=== PATIENT | male | born 1995 | race Caucasian/White ===

== ENCOUNTER 2021-10-10 16:38 | Inpatient (IN) | payer BC ==
[~2021-10-10] VITALS: Ht 160 cm; Wt 54.5 kg
[2021-10-10 18:12] LABS: BASOPHILS % 1.1 % (0.0-2.0); EOSINOPHILS % 1.6 % (0.0-5.0); LYMPHOCYTES % 15.5 % (20.0-50.0); MEAN CORPUSCULAR HEMOGLOBIN 31.1 pg (28.0-32.0); MEAN CORPUSCULAR VOLUME 92.8 fL (80.0-94.0); MEAN PLATELET VOLUME 7.9 fl (7.4-10.4); MONOCYTES % 7.9 % (2.0-8.0); NEUTROPHILS % 73.9 % (40.0-76.0); PLATELET 249 x1000/uL (130-400); RED BLOOD CELL COUNT 1.47 mill/uL (4.7-6.1); RED CELL DISTRIBUTION WIDTH 13.6 % (11.6-14.6)
[2021-10-10 18:15] LABS: CHLORIDE 107 mEq/L (98-107); HEMOGLOBIN. 4.6 g/dL (14.0-18.0)
[2021-10-10 18:16] LABS: HEMATOCRIT. 13.7 % (42.0-52.0)
[2021-10-10 18:17] LABS: INR 1.2; PROTHROMBIN TIME 12.3 sec (9.6-11.0)
[2021-10-10 18:19] LABS: ETHANOL BLOOD < 10 mg/dL
[2021-10-10] MEDS ORDERED: FUROSEMIDE 100MG/10ML VIAL IV STA (19:51)
[2021-10-10] MEDS ORDERED: SODIUM BICARBONATE 8.4% 1 MEQ/ML 50ML SYR IV ONE (20:00)
[2021-10-10] MEDS ORDERED: DEXTROSE 50% WATER 50ML SYRINGE IV ONE (20:00)
[2021-10-10] MEDS ORDERED: CALCIUM GLUCONATE 1GM PREMIX 50 ML IV ONE (20:00)
[2021-10-10] MEDS ORDERED: ALBUTEROL (0.083%) 2.5MG/3ML NEB HHN ONE (20:00)
[2021-10-10] MEDS ORDERED: INSULIN REGULAR (HUMULIN R) 300UNITS/3ML VIAL IV ONE (20:00)
[2021-10-10] MEDS ORDERED: SODIUM POLYSTYRENE SULFONATE 15 G/60 ML BOT PO ONE (20:00)
[2021-10-11] VITALS (7 sets, daily range): BP systolic 130–165; BP diastolic 64–90
[2021-10-11 02:32] LABS: BASOPHILS % 0.5 % (0.0-2.0); EOSINOPHILS % 0.5 % (0.0-5.0); LYMPHOCYTES % 9.4 % (20.0-50.0); MEAN CORPUSCULAR HEMOGLOBIN 29.3 pg (28.0-32.0); MEAN CORPUSCULAR VOLUME 87.6 fL (80.0-94.0); MONOCYTES % 7.5 % (2.0-8.0); NEUTROPHILS % 82.1 % (40.0-76.0); PLATELET 208 x1000/uL (130-400); RED BLOOD CELL COUNT 2.35 mill/uL (4.7-6.1); RED CELL DISTRIBUTION WIDTH 16.7 % (11.6-14.6)
[2021-10-11 03:14] LABS: HEMATOCRIT. 20.6 % (42.0-52.0)
[2021-10-11 03:15] LABS: HEMOGLOBIN. 6.9 g/dL (14.0-18.0)
[2021-10-11] MEDS ORDERED: LIDOCAINE HCL 1% 20ML VIAL (Pyxis) INJ ONE (08:17)
[2021-10-11] MEDS ORDERED: ONDANSETRON HCL 4MG/2ML INJ IV PRN (10:15)
[2021-10-11 17:19] LABS: HEPATITIS B SURFACE ANTIGEN NEGATIVE
[2021-10-11 17:20] LABS: HEPATITIS B SURFACE ANTIGEN NEGATIVE
[2021-10-12] VITALS: BP 158/88
[2021-10-12 00:15] LABS: HEMATOCRIT 24.9 % (42.0-52.0); HEMOGLOBIN 8.5 g/dL (14.0-18.0)
[2021-10-12 00:23] LABS: PHOSPHORUS 4.5 mg/dL (2.5-4.9)
[2021-10-12 03:58] VITALS: BP 137/77
[2021-10-12 05:48] LABS: BASOPHILS % 0.8 % (0.0-2.0); EOSINOPHILS % 1.5 % (0.0-5.0); HEMATOCRIT. 24.7 % (42.0-52.0); HEMOGLOBIN. 8.6 g/dL (14.0-18.0); LYMPHOCYTES % 18.7 % (20.0-50.0); MEAN CORPUSCULAR HEMOGLOBIN 28.6 pg (28.0-32.0); MEAN CORPUSCULAR VOLUME 82.3 fL (80.0-94.0); PLATELET 180 x1000/uL (130-400); RED CELL DISTRIBUTION WIDTH 19.3 % (11.6-14.6)
[2021-10-12 08:00] VITALS: BP 130/84
[2021-10-12] MEDS: ACETAMINOPHEN 325MG TABLET PO PRN (08:23)
[2021-10-12] MEDS: AMLODIPINE 10MG TABLET PO SCH (08:24)
[2021-10-12] MEDS ORDERED: ONDANSETRON HCL 4MG/2ML INJ IV PRN (10:00)
[2021-10-12 12:00] VITALS: BP 123/68
[2021-10-12 16:00] VITALS: BP 123/81
[2021-10-12] MEDS: CALCIUM 1250MG TABLET (500MG ELEMENTAL CALCIUM) PO SCH (16:54)
[2021-10-12 20:00] VITALS: BP 128/89
[2021-10-12] MEDS ORDERED: EPOETIN ALFA-EPBX 4,000 UNIT/ML VIAL SUBCUT SCH (21:00)
[2021-10-13] VITALS: BP 131/94
[2021-10-13 04:00] VITALS: BP 124/85
[2021-10-13 08:00] VITALS: BP 138/84
[2021-10-13] MEDS: AMLODIPINE 10MG TABLET PO SCH ×2 (08:07→15:34)
[2021-10-13] MEDS: CALCIUM 1250MG TABLET (500MG ELEMENTAL CALCIUM) PO SCH ×3 (08:08→16:39)
[2021-10-13 08:10] LABS: BASOPHILS % 0.9 % (0.0-2.0); EOSINOPHILS % 2.2 % (0.0-5.0); HEMATOCRIT. 27.4 % (42.0-52.0); HEMOGLOBIN. 9.4 g/dL (14.0-18.0); LYMPHOCYTES % 13.7 % (20.0-50.0); MEAN CORPUSCULAR HEMOGLOBIN 28.3 pg (28.0-32.0); MEAN CORPUSCULAR VOLUME 82.5 fL (80.0-94.0); MEAN PLATELET VOLUME 8.1 fl (7.4-10.4); MONOCYTES % 9.3 % (2.0-8.0); NEUTROPHILS % 73.9 % (40.0-76.0); PLATELET 210 x1000/uL (130-400); RED BLOOD CELL COUNT 3.33 mill/uL (4.7-6.1); RED CELL DISTRIBUTION WIDTH 18.8 % (11.6-14.6)
[2021-10-13 12:00] VITALS: BP 134/93
[2021-10-13 16:00] VITALS: BP 150/107
[2021-10-13] MEDS: FERROUS SULFATE 325MG TABLET PO SCH (16:40)
[2021-10-13 20:00] VITALS: BP 126/87
[2021-10-14] VITALS (17 sets, daily range): BP systolic 99–147; BP diastolic 8–96
[2021-10-14 06:40] LABS: EOSINOPHILS % 2.2 % (0.0-5.0); HEMATOCRIT. 28.6 % (42.0-52.0); HEMOGLOBIN. 9.8 g/dL (14.0-18.0); LYMPHOCYTES % 16.9 % (20.0-50.0); MEAN CORPUSCULAR HEMOGLOBIN 28.4 pg (28.0-32.0); MEAN CORPUSCULAR VOLUME 82.7 fL (80.0-94.0); MEAN PLATELET VOLUME 7.8 fl (7.4-10.4); MONOCYTES % 11.2 % (2.0-8.0); NEUTROPHILS % 68.7 % (40.0-76.0); PLATELET 238 x1000/uL (130-400); RED BLOOD CELL COUNT 3.46 mill/uL (4.7-6.1); RED CELL DISTRIBUTION WIDTH 18.5 % (11.6-14.6)
[2021-10-14 07:13] LABS: INR 1.2; PROTHROMBIN TIME 12.3 sec (9.6-11.0)
[2021-10-14] MEDS ORDERED: CEFAZOLIN 1000MG PREMIX 50 ML IV ONE ×2 (07:30→07:42)
[2021-10-14] MEDS ORDERED: FENTANYL CITRATE/PF 50MCG/ML 2ML VIAL ONE (07:42)
[2021-10-14] MEDS ORDERED: HEPARIN 1000 UNITS/ML 10ML ONE (07:43)
[2021-10-14] MEDS ORDERED: LIDOCAINE HCL 1% 20ML VIAL (Pyxis) INJ ONE (07:43)
[2021-10-14] MEDS ORDERED: FENTANYL CITRATE/PF 50MCG/ML 2ML VIAL IV ONE (08:30)
[2021-10-14] MEDS: CALCIUM 1250MG TABLET (500MG ELEMENTAL CALCIUM) PO SCH ×3 (10:02→17:42)
[2021-10-14] MEDS: FERROUS SULFATE 325MG TABLET PO SCH ×2 (10:03→17:42)
[2021-10-14] MEDS: AMLODIPINE 10MG TABLET PO SCH (10:03)
[2021-10-14] MEDS: ACETAMINOPHEN 325MG TABLET PO PRN (13:00)
[2021-10-14 13:06] LABS: A/G RATIO 1.3 (0.7-1.7); ALBUMIN 3.2 g/dL (2.9-4.4); ALPHA-1-GLOBULIN 0.3 g/dL (0.0-0.4); BETA GLOBULIN 0.9 g/dL (0.7-1.3); GAMMA GLOBULINS 0.4 g/dL (0.4-1.8); GLOBULIN TOTAL 2.5 g/dL (2.2-3.9); M-SPIKE Not Observed g/dL (Not Observed); TOTAL PROTEIN SERUM 5.7 g/dL (6.0-8.5)
== END 2021-10-14 20:27 | disposition left against medical advice (07) | DRG 673 ==
LOC: ER 16:38 → MICUSO 18:18 → EDBEDREQ 18:24 → EDBEDREQTM 18:24 → 8WST 10-11 11:47
PROVIDERS: ADMIT Internal Medicine; ATTEND Internal Medicine
PROC: 30233N1 Transfusion of Nonautologous Red Blood Cells into Peripheral Vein, Percutaneous Approach (ICD-10-PCS; principal; 2021-10-10)
PROC: 5A1D70Z Performance of Urinary Filtration, Intermittent, Less than 6 Hours Per Day (ICD-10-PCS; 2021-10-11)
PROC: 02H633Z Insertion of Infusion Device into Right Atrium, Percutaneous Approach (ICD-10-PCS; 2021-10-11)
PROC: B548ZZA Ultrasonography of Superior Vena Cava, Guidance (ICD-10-PCS; 2021-10-11)
PROC: 5A1D70Z Performance of Urinary Filtration, Intermittent, Less than 6 Hours Per Day (ICD-10-PCS; 2021-10-13)
PROC: 0JH63XZ Insertion of Tunneled Vascular Access Device into Chest Subcutaneous Tissue and Fascia, Percutaneous Approach (ICD-10-PCS; 2021-10-14)
PROC: 02PAX3Z Removal of Infusion Device from Heart, External Approach (ICD-10-PCS; 2021-10-14)
PROC: 02HV33Z Insertion of Infusion Device into Superior Vena Cava, Percutaneous Approach (ICD-10-PCS; 2021-10-14)
PROC: B518ZZA Fluoroscopy of Superior Vena Cava, Guidance (ICD-10-PCS; 2021-10-14)
DX: I13.11 Hypertensive heart and chronic kidney disease without heart failure, with stage 5 chronic kidney disease, or end stage renal disease (principal); N18.6 End stage renal disease; N17.9 Acute kidney failure, unspecified; E87.2 Acidosis; E44.0 Moderate protein-calorie malnutrition; Z20.822 Contact with and (suspected) exposure to COVID-19; Z53.29 Procedure and treatment not carried out because of patient's decision for other reasons; D64.9 Anemia, unspecified; E87.5 Hyperkalemia; E83.51 Hypocalcemia; Z99.2 Dependence on renal dialysis; Z68.21 Body mass index [BMI] 21.0-21.9, adult
CPT/HCPCS: 36415; 36556; 36558; 36589; 71045; 76770; 76937; 77001; 80048; 80053; 80320; 82550; 82728; 83036; 83540; 83550; 83605; 83880; 84100; 84155; 84165; 84484; 85014; 85018; 85025; 86705; 86706; 86709; 86803; 86850; 86900; 86920; 87340; 87426; 93005; 94644; 99152; 99153; 99291; C1750; C1752; C1769; J0610; J0690; J0885; J1644; J1815; J1940; J3010; J3490; P9016; G0480; G0500

== ENCOUNTER 2021-10-15 12:33 | Emergency (ER) | payer BC ==
[~2021-10-15] VITALS: Ht 160 cm; Wt 50.0 kg
[2021-10-15 16:03] LABS: BASOPHILS % 0.9 % (0.0-2.0); EOSINOPHILS % 1.6 % (0.0-5.0); HEMATOCRIT. 28.6 % (42.0-52.0); HEMOGLOBIN. 9.3 g/dL (14.0-18.0); LYMPHOCYTES % 11.8 % (20.0-50.0); MEAN CORPUSCULAR HEMOGLOBIN 27.4 pg (28.0-32.0); MEAN CORPUSCULAR VOLUME 83.8 fL (80.0-94.0); MEAN PLATELET VOLUME 7.4 fl (7.4-10.4); MONOCYTES % 9.4 % (2.0-8.0); NEUTROPHILS % 76.3 % (40.0-76.0); PLATELET 269 x1000/uL (130-400); RED BLOOD CELL COUNT 3.41 mill/uL (4.7-6.1); RED CELL DISTRIBUTION WIDTH 18.9 % (11.6-14.6)
[2021-10-15 16:10] LABS: CHLORIDE 103 mEq/L (98-107)
[2021-10-15 21:13] LABS: CLARITY URINE CLEAR (CLEAR); COLOR URINE YELLOW (YELLOW); PH URINE 7.5 (4.5-8.0); SPECIFIC GRAVITY URINE 1.013 (1.005-1.030)
[2021-10-15 21:14] LABS: KETONES URINE NEGATIVE (NEGATIVE); PROTEIN URINE 4+ (NEGATIVE)
[2021-10-15 21:15] LABS: LEUKOCYTE ESTERASE URINE TRACE (NEGATIVE); NITRITE URINE NEGATIVE (NEGATIVE); OCCULT BLOOD URINE 2+ (NEGATIVE); UROBILINOGEN URINE 0.2 E.U./dL (0.2-1.0)
[2021-10-15 22:10] VITALS: BP 112/73
== END 2021-10-15 22:10 | disposition left against medical advice (07) ==
LOC: ER 12:33 → CANBEDREQ 10-16 01:08 → SUPCPDRO 10-16 15:30
DX: N19 Unspecified kidney failure (principal); I49.9 Cardiac arrhythmia, unspecified; Z20.822 Contact with and (suspected) exposure to COVID-19
CPT/HCPCS: 36415; 71045; 80053; 81003; 83880; 84484; 85025; 87426; 93005; 99285

== ENCOUNTER 2021-10-20 21:45 | Inpatient (IN) | payer BC ==
[~2021-10-20] VITALS: Ht 154.9 cm; Wt 59.9 kg
[2021-10-20 23:15] LABS: EOSINOPHILS % 1.7 % (0.0-5.0); HEMATOCRIT. 24.5 % (42.0-52.0); HEMOGLOBIN. 8.1 g/dL (14.0-18.0); LYMPHOCYTES % 17.2 % (20.0-50.0); MEAN CORPUSCULAR VOLUME 84.3 fL (80.0-94.0); MEAN PLATELET VOLUME 6.9 fl (7.4-10.4); MONOCYTES % 8.6 % (2.0-8.0); NEUTROPHILS % 71.5 % (40.0-76.0); PLATELET 306 x1000/uL (130-400); RED CELL DISTRIBUTION WIDTH 18.9 % (11.6-14.6)
[2021-10-20 23:19] LABS: CHLORIDE 106 mEq/L (98-107)
[2021-10-20 23:37] LABS: INR 1.1; PROTHROMBIN TIME 11.9 sec (9.6-11.0)
[2021-10-20] MEDS ORDERED: FUROSEMIDE 100MG/10ML VIAL IV NR (23:49)
[2021-10-21] MEDS ORDERED: ALBUTEROL (0.083%) 2.5MG/3ML NEB HHN NR
[2021-10-21] MEDS ORDERED: DEXTROSE 50% WATER 50ML SYRINGE IV NR
[2021-10-21] MEDS ORDERED: INSULIN REGULAR (HUMULIN R) 300UNITS/3ML VIAL IV NR
[2021-10-21] MEDS ORDERED: CALCIUM CHLORIDE 1GM/10ML SYR IV NR
[2021-10-21] MEDS ORDERED: SODIUM BICARBONATE 8.4% 1 MEQ/ML 50ML SYR IV NR
[2021-10-21] MEDS ORDERED: ONDANSETRON HCL 4MG/2ML INJ IV PRN (09:15)
[2021-10-21 09:39] LABS: CLARITY URINE CLEAR (CLEAR); COLOR URINE YELLOW (YELLOW); KETONES URINE NEGATIVE (NEGATIVE); LEUKOCYTE ESTERASE URINE NEGATIVE (NEGATIVE); NITRITE URINE NEGATIVE (NEGATIVE); OCCULT BLOOD URINE 1+ (NEGATIVE); PROTEIN URINE 3+ (NEGATIVE); SPECIFIC GRAVITY URINE 1.011 (1.005-1.030); UROBILINOGEN URINE 0.2 E.U./dL (0.2-1.0)
[2021-10-21] MEDS ORDERED: CALCIUM CHLORIDE 1,000 MG in DEXT 5% WATER 90 ML IV NR (10:00)
[2021-10-21 12:04] LABS: HEPATITIS B SURFACE ANTIGEN NEGATIVE
[2021-10-21] MEDS: IPRATROPIUM BROMIDE (0.02%) 0.5MG/2.5ML NEB HHN SCH (18:20)
[2021-10-21] MEDS: PIPERACILLIN/TAZOBACTAM 3.375 G in DEXTROSE 5% WATER 50 ML IV SCH (20:00)
[2021-10-22] MEDS: ACETAMINOPHEN 325MG TABLET PO PRN ×2 (00:32→22:42)
[2021-10-22] MEDS: IPRATROPIUM BROMIDE (0.02%) 0.5MG/2.5ML NEB HHN SCH ×5 (01:00→19:53)
[2021-10-22 04:54] VITALS: BP 133/95
[2021-10-22 08:00] VITALS: BP 133/90
[2021-10-22 08:14] LABS: BASOPHILS % 0.7 % (0.0-2.0); HEMATOCRIT. 23.6 % (42.0-52.0); LYMPHOCYTES % 10.4 % (20.0-50.0); MEAN CORPUSCULAR VOLUME 82.2 fL (80.0-94.0); MEAN PLATELET VOLUME 6.4 fl (7.4-10.4); MONOCYTES % 11.6 % (2.0-8.0); NEUTROPHILS % 76.3 % (40.0-76.0); PLATELET 298 x1000/uL (130-400); RED BLOOD CELL COUNT 2.87 mill/uL (4.7-6.1); RED CELL DISTRIBUTION WIDTH 19.2 % (11.6-14.6)
[2021-10-22] MEDS: PIPERACILLIN/TAZOBACTAM 3.375 G in DEXTROSE 5% WATER 50 ML IV SCH ×2 (08:51→22:40)
[2021-10-22 12:00] VITALS: BP 135/88
[2021-10-22 16:00] VITALS: BP 145/88
[2021-10-22] MEDS ORDERED: OXYMETAZOLINE HCL NASAL SPRAY 15ML BOTHNSTRLS PRN (16:00)
[2021-10-22 20:00] VITALS: BP 151/106
[2021-10-23] MEDS: IPRATROPIUM BROMIDE (0.02%) 0.5MG/2.5ML NEB HHN SCH ×5 (00:21→17:10)
[2021-10-23 04:00] VITALS: BP 132/78
[2021-10-23 07:25] LABS: HEMATOCRIT. 22.1 % (42.0-52.0); HEMOGLOBIN. 7.7 g/dL (14.0-18.0); MEAN CORPUSCULAR HEMOGLOBIN 28.5 pg (28.0-32.0); MEAN CORPUSCULAR VOLUME 81.9 fL (80.0-94.0); MEAN PLATELET VOLUME 7.2 fl (7.4-10.4); PLATELET 268 x1000/uL (130-400); RED CELL DISTRIBUTION WIDTH 18.8 % (11.6-14.6)
[2021-10-23 08:00] VITALS: BP 143/90
[2021-10-23] MEDS: METOPROLOL TARTRATE 50MG TABLET PO SCH ×2 (10:26→22:29)
[2021-10-23] MEDS: PIPERACILLIN/TAZOBACTAM 3.375 G in DEXTROSE 5% WATER 50 ML IV SCH ×2 (10:27→22:29)
[2021-10-23] MEDS ORDERED: VANCOMYCIN 1G PREMIX 200 ML IV SCH (11:00)
[2021-10-23 12:00] VITALS: BP 138/89
[2021-10-23] MEDS: FOLIC ACID/VITAMIN B COMP W-C TABLET PO SCH (14:04)
[2021-10-23] MEDS: CALCIUM ACETATE 667MG CAPSULE PO SCH ×2 (14:04→18:27)
[2021-10-23] MEDS: ACETAMINOPHEN 325MG TABLET PO PRN ×2 (15:43→22:28)
[2021-10-23 16:00] VITALS: BP 136/85
[2021-10-23 17:34] LABS: PLATELET ESTIMATE NORMAL
[2021-10-23] MEDS ORDERED: IOHEXOL-300 100 ML BOTTLE ONE (19:29)
[2021-10-23] MEDS ORDERED: IOHEXOL-350 100 ML BOTTLE ONE (19:30)
[2021-10-23 20:00] VITALS: BP 145/88
[2021-10-24] VITALS (53 sets, daily range): BP systolic 94–176; BP diastolic 47–124
[2021-10-24 02:33] LABS: BG BASE EXCESS -5.5 mmol/L (-2.0-2.0); BG CARBOXYHEMOGLOBIN 0.1 % (0.5-1.5); BG DEOXYHEMOGLOBIN 29.7 % (0.0-5.0); BG FRACTION INSPIRED OXYGEN 100; BG HCO3 ACT 20.2 mmol/L (22.0-26.0); BG OXYGEN SATURATION 70.3 % (92.0-98.5); BG OXYHEMOGLOBIN 70.2 % (94.0-97.0); BG PCO2 40.2 mmHg (35.0-45.0); BG PH 7.319 (7.350-7.450); BG PO2 40.3 mmHg (75.0-100.0); BG SAMPLE SITE LEFT RADIAL; BG VENT MODE MASK - NRB
[2021-10-24 06:35] LABS: HEMATOCRIT. 26.8 % (42.0-52.0); HEMOGLOBIN. 9.4 g/dL (14.0-18.0); MEAN CORPUSCULAR HEMOGLOBIN 29.3 pg (28.0-32.0); MEAN CORPUSCULAR VOLUME 83.5 fL (80.0-94.0); MEAN PLATELET VOLUME 7.4 fl (7.4-10.4); PLATELET 336 x1000/uL (130-400); RED BLOOD CELL COUNT 3.21 mill/uL (4.7-6.1); RED CELL DISTRIBUTION WIDTH 19.4 % (11.6-14.6)
[2021-10-24] MEDS: CALCIUM ACETATE 667MG CAPSULE PO SCH ×3 (07:15→17:00)
[2021-10-24] MEDS ORDERED: CALCIUM CHLORIDE 1,000 MG in DEXT 5% WATER 90 ML IV SCH (08:00)
[2021-10-24] MEDS ORDERED: INSULIN REGULAR (HUMULIN R) UD 100 UNITS/ML SYR IV SCH (08:00)
[2021-10-24] MEDS ORDERED: SODIUM BICARBONATE 8.4% 1 MEQ/ML 50ML SYR IV SCH (08:00)
[2021-10-24] MEDS ORDERED: DEXTROSE 50% WATER 50ML SYRINGE IV SCH (08:00)
[2021-10-24] MEDS ORDERED: INSULIN REGULAR (HUMULIN R) 300UNITS/3ML VIAL IV NR (08:03)
[2021-10-24] MEDS ORDERED: DEXTROSE 50% WATER 50ML SYRINGE IV NR (08:04)
[2021-10-24] MEDS ORDERED: SODIUM BICARBONATE 8.4% 1 MEQ/ML 50ML SYR IV NR (08:04)
[2021-10-24] MEDS ORDERED: SODIUM POLYSTYRENE SULFONATE 15 G/60 ML BOT PO NR (08:04)
[2021-10-24] MEDS ORDERED: NICARDIPINE 50 MG in SODIUM CHLORIDE 0.9% 230 ML IV PRN (08:30)
[2021-10-24] MEDS: IPRATROPIUM BROMIDE (0.02%) 0.5MG/2.5ML NEB HHN SCH ×2 (08:49→21:29)
[2021-10-24] MEDS ORDERED: CALCIUM CHLORIDE 1,000 MG in DEXT 5% WATER 90 ML IV NR (09:00)
[2021-10-24] MEDS: FOLIC ACID/VITAMIN B COMP W-C TABLET PO SCH (09:00)
[2021-10-24] MEDS: METOPROLOL TARTRATE 50MG TABLET PO SCH ×2 (09:00→20:59)
[2021-10-24 10:30] LABS: BG BASE EXCESS -5.4 mmol/L (-2.0-2.0); BG CARBOXYHEMOGLOBIN 0.3 % (0.5-1.5); BG DEOXYHEMOGLOBIN 2.1 % (0.0-5.0); BG FRACTION INSPIRED OXYGEN 100; BG HCO3 ACT 20.2 mmol/L (22.0-26.0); BG METHEMOGLOBIN 0.1 % (0.0-1.5); BG OXYGEN SATURATION 97.9 % (92.0-98.5); BG OXYHEMOGLOBIN 97.5 % (94.0-97.0); BG PCO2 39.8 mmHg (35.0-45.0); BG PH 7.323 (7.350-7.450); BG PO2 135.2 mmHg (75.0-100.0); BG SAMPLE SITE RIGHT RADIAL; BG TOTAL HEMOGLOBIN 9.6 g/dL (12.0-18.0); BG TOTAL RESPIRATORY RATE 25 b/min; BG VENT MODE VENT - AC
[2021-10-24] MEDS: PROPOFOL 10MG/ML 100ML 100 ML IV PRN ×3 (11:26→22:31)
[2021-10-24] MEDS: FENTANYL CITRATE/PF 2,500 MCG in SODIUM CHLORIDE 0.9% 200 ML IV PRN ×2 (11:28→21:09)
[2021-10-24] MEDS: PIPERACILLIN/TAZOBACTAM 3.375 G in DEXTROSE 5% WATER 50 ML IV SCH ×2 (12:56→20:58)
[2021-10-24] MEDS ORDERED: PHENYLEPHRINE 100 MG in DEXT 5% WATER 240 ML IV PRN (13:00)
[2021-10-24] MEDS: MIDAZOLAM HCL 100 MG in SODIUM CHLORIDE 0.9% 80 ML IV PRN (13:00)
[2021-10-24 13:40] LABS: PLATELET ESTIMATE NORMAL
[2021-10-24] MEDS: METHYLPREDNISOLONE SOD SUCC 125 MG/2 ML VIAL IV SCH ×2 (14:14→21:00)
[2021-10-24] MEDS ORDERED: VECURONIUM BROMIDE 10 MG/VIAL IV ONE (14:37)
[2021-10-24] MEDS ORDERED: ETOMIDATE 2MG/ML 10ML VIAL IV ONE (14:37)
[2021-10-24] MEDS ORDERED: SODIUM CHLORIDE 0.9% 10ML VIAL ONE (14:37)
[2021-10-25] VITALS (68 sets, daily range): BP systolic 65–202; BP diastolic 43–154
[2021-10-25] MEDS: IPRATROPIUM BROMIDE (0.02%) 0.5MG/2.5ML NEB HHN SCH ×6 (01:04→21:19)
[2021-10-25 05:33] LABS: HEMATOCRIT. 25.7 % (42.0-52.0); HEMOGLOBIN. 8.9 g/dL (14.0-18.0); MEAN CORPUSCULAR HEMOGLOBIN 28.4 pg (28.0-32.0); MEAN CORPUSCULAR VOLUME 81.9 fL (80.0-94.0); MEAN PLATELET VOLUME 7.4 fl (7.4-10.4); PLATELET 340 x1000/uL (130-400); RED BLOOD CELL COUNT 3.14 mill/uL (4.7-6.1); RED CELL DISTRIBUTION WIDTH 19.2 % (11.6-14.6)
[2021-10-25] MEDS: METHYLPREDNISOLONE SOD SUCC 125 MG/2 ML VIAL IV SCH ×3 (05:51→22:55)
[2021-10-25] MEDS: PROPOFOL 10MG/ML 100ML 100 ML IV PRN ×2 (07:36→17:43)
[2021-10-25] MEDS: CALCIUM ACETATE 667MG CAPSULE PO SCH ×3 (07:36→17:39)
[2021-10-25 08:58] LABS: BG BASE EXCESS 3.2 mmol/L (-2.0-2.0); BG CARBOXYHEMOGLOBIN 0.3 % (0.5-1.5); BG DEOXYHEMOGLOBIN 0.6 % (0.0-5.0); BG HCO3 ACT 23.4 mmol/L (22.0-26.0); BG OXYGEN SATURATION 99.4 % (92.0-98.5); BG OXYHEMOGLOBIN 99.1 % (94.0-97.0); BG PH 7.644 (7.350-7.450); BG PO2 502.5 mmHg (75.0-100.0); BG SAMPLE SITE LEFT RADIAL; BG TOTAL HEMOGLOBIN 9.3 g/dL (12.0-18.0); BG VENT MODE VENT - P/C
[2021-10-25 09:00] LABS: PLATELET ESTIMATE NORMAL
[2021-10-25] MEDS: METOPROLOL TARTRATE 50MG TABLET PO SCH ×2 (09:00→21:00)
[2021-10-25] MEDS: FOLIC ACID/VITAMIN B COMP W-C TABLET PO SCH (09:40)
[2021-10-25] MEDS: PANTOPRAZOLE SODIUM 40 MG/VIAL IV SCH (09:40)
[2021-10-25] MEDS: PIPERACILLIN/TAZOBACTAM 3.375 G in DEXTROSE 5% WATER 50 ML IV SCH ×2 (09:40→22:55)
[2021-10-25] MEDS: FENTANYL CITRATE/PF 2,500 MCG in SODIUM CHLORIDE 0.9% 200 ML IV PRN (11:36)
[2021-10-26] VITALS (86 sets, daily range): BP systolic 85–197; BP diastolic 39–132
[2021-10-26] MEDS: IPRATROPIUM BROMIDE (0.02%) 0.5MG/2.5ML NEB HHN SCH ×5 (01:15→20:05)
[2021-10-26] MEDS: FENTANYL CITRATE/PF 2,500 MCG in SODIUM CHLORIDE 0.9% 200 ML IV PRN ×3 (01:31→21:00)
[2021-10-26] MEDS: PROPOFOL 10MG/ML 100ML 100 ML IV PRN ×3 (02:41→14:10)
[2021-10-26] MEDS: CALCIUM ACETATE 667MG CAPSULE PO SCH ×3 (06:10→17:32)
[2021-10-26] MEDS: METHYLPREDNISOLONE SOD SUCC 125 MG/2 ML VIAL IV SCH ×3 (06:10→22:51)
[2021-10-26 06:11] LABS: BASOPHILS % 0.2 % (0.0-2.0); HEMATOCRIT. 28.7 % (42.0-52.0); HEMOGLOBIN. 9.7 g/dL (14.0-18.0); LYMPHOCYTES % 7.7 % (20.0-50.0); MEAN CORPUSCULAR HEMOGLOBIN 27.8 pg (28.0-32.0); MEAN CORPUSCULAR VOLUME 82.4 fL (80.0-94.0); MEAN PLATELET VOLUME 8.1 fl (7.4-10.4); MONOCYTES % 2.8 % (2.0-8.0); NEUTROPHILS % 89.3 % (40.0-76.0); PLATELET 453 x1000/uL (130-400); RED BLOOD CELL COUNT 3.48 mill/uL (4.7-6.1); RED CELL DISTRIBUTION WIDTH 19.2 % (11.6-14.6)
[2021-10-26] MEDS: FOLIC ACID/VITAMIN B COMP W-C TABLET PO SCH (08:45)
[2021-10-26] MEDS: PIPERACILLIN/TAZOBACTAM 3.375 G in DEXTROSE 5% WATER 50 ML IV SCH (08:45)
[2021-10-26] MEDS: PANTOPRAZOLE SODIUM 40 MG/VIAL IV SCH (08:45)
[2021-10-26] MEDS: METOPROLOL TARTRATE 50MG TABLET PO SCH ×2 (08:45→20:18)
[2021-10-26 11:14] LABS: BG BASE EXCESS -0.5 mmol/L (-2.0-2.0); BG CARBOXYHEMOGLOBIN 0.3 % (0.5-1.5); BG DEOXYHEMOGLOBIN 2.7 % (0.0-5.0); BG FRACTION INSPIRED OXYGEN 35; BG METHEMOGLOBIN 0.3 % (0.0-1.5); BG OXYGEN SATURATION 97.3 % (92.0-98.5); BG OXYHEMOGLOBIN 96.7 % (94.0-97.0); BG PCO2 38.8 mmHg (35.0-45.0); BG PH 7.409 (7.350-7.450); BG PO2 106.4 mmHg (75.0-100.0); BG SAMPLE SITE RIGHT RADIAL; BG TOTAL HEMOGLOBIN 10.1 g/dL (12.0-18.0); BG VENT MODE VENT - P/C
[2021-10-26 12:22] LABS: CHLORIDE 101 mEq/L (98-107)
[2021-10-26] MEDS ORDERED: DOPAMINE 400MG/250ML PREMIX 250 ML IV PRN (14:00)
[2021-10-26] MEDS: MIDAZOLAM HCL 100 MG in SODIUM CHLORIDE 0.9% 80 ML IV PRN (14:54)
[2021-10-27] VITALS (76 sets, daily range): BP systolic 95–176; BP diastolic 44–141
[2021-10-27] MEDS: MIDAZOLAM HCL 100 MG in SODIUM CHLORIDE 0.9% 80 ML IV PRN ×3 (03:29→22:51)
[2021-10-27] MEDS: IPRATROPIUM BROMIDE (0.02%) 0.5MG/2.5ML NEB HHN SCH ×6 (04:13→21:00)
[2021-10-27 04:45] LABS: HEMATOCRIT. 24.7 % (42.0-52.0); HEMOGLOBIN. 8.4 g/dL (14.0-18.0); MEAN CORPUSCULAR HEMOGLOBIN 28.3 pg (28.0-32.0); MEAN CORPUSCULAR VOLUME 83.5 fL (80.0-94.0); MEAN PLATELET VOLUME 7.7 fl (7.4-10.4); PLATELET 357 x1000/uL (130-400); RED BLOOD CELL COUNT 2.95 mill/uL (4.7-6.1)
[2021-10-27] MEDS: FENTANYL CITRATE/PF 2,500 MCG in SODIUM CHLORIDE 0.9% 200 ML IV PRN ×3 (05:15→20:45)
[2021-10-27] MEDS: CALCIUM ACETATE 667MG CAPSULE PO SCH ×3 (06:18→19:06)
[2021-10-27] MEDS: METHYLPREDNISOLONE SOD SUCC 125 MG/2 ML VIAL IV SCH ×3 (06:19→21:22)
[2021-10-27] MEDS ORDERED: SODIUM POLYSTYRENE SULFONATE 15 G/60 ML BOT NG NR (09:00)
[2021-10-27] MEDS: METOPROLOL TARTRATE 50MG TABLET PO SCH ×2 (09:00→21:22)
[2021-10-27] MEDS: PANTOPRAZOLE SODIUM 40 MG/VIAL IV SCH (09:38)
[2021-10-27] MEDS: FOLIC ACID/VITAMIN B COMP W-C TABLET PO SCH (09:38)
[2021-10-27] MEDS ORDERED: CALCIUM GLUCONATE 1GM PREMIX 50 ML IV SCH (10:00)
[2021-10-27 10:11] LABS: BG BASE EXCESS -3.3 mmol/L (-2.0-2.0); BG CARBOXYHEMOGLOBIN 0.3 % (0.5-1.5); BG FRACTION INSPIRED OXYGEN 35; BG HCO3 ACT 22.5 mmol/L (22.0-26.0); BG METHEMOGLOBIN 0.1 % (0.0-1.5); BG OXYHEMOGLOBIN 94.6 % (94.0-97.0); BG PCO2 43.7 mmHg (35.0-45.0); BG PO2 86.6 mmHg (75.0-100.0); BG SAMPLE SITE RIGHT RADIAL; BG TOTAL HEMOGLOBIN 9.4 g/dL (12.0-18.0); BG VENT MODE VENT - P/C
[2021-10-27] MEDS ORDERED: SODIUM BICARBONATE 8.4% 1 MEQ/ML 50ML SYR IV ONE (11:00)
[2021-10-27 13:32] LABS: PLATELET ESTIMATE NORMAL
[2021-10-27] MEDS: LORAZEPAM 2MG/ML CPJ IV PRN (22:18)
[2021-10-28] VITALS (67 sets, daily range): BP systolic 102–172; BP diastolic 44–111
[2021-10-28] MEDS: IPRATROPIUM BROMIDE (0.02%) 0.5MG/2.5ML NEB HHN SCH ×5 (00:58→16:30)
[2021-10-28] MEDS: LORAZEPAM 2MG/ML CPJ IV PRN ×2 (02:25→08:52)
[2021-10-28] MEDS: FENTANYL CITRATE/PF 2,500 MCG in SODIUM CHLORIDE 0.9% 200 ML IV PRN ×2 (04:04→22:30)
[2021-10-28] MEDS: METHYLPREDNISOLONE SOD SUCC 125 MG/2 ML VIAL IV SCH ×3 (06:02→22:25)
[2021-10-28] MEDS: CALCIUM ACETATE 667MG CAPSULE PO SCH ×3 (06:02→17:00)
[2021-10-28 06:28] LABS: HEMATOCRIT. 21.8 % (42.0-52.0); HEMOGLOBIN. 7.1 g/dL (14.0-18.0); MEAN CORPUSCULAR HEMOGLOBIN 27.3 pg (28.0-32.0); MEAN CORPUSCULAR VOLUME 84.3 fL (80.0-94.0); MEAN PLATELET VOLUME 7.7 fl (7.4-10.4); PLATELET 348 x1000/uL (130-400); RED BLOOD CELL COUNT 2.59 mill/uL (4.7-6.1); RED CELL DISTRIBUTION WIDTH 19.1 % (11.6-14.6)
[2021-10-28 06:42] LABS: CHLORIDE 102 mEq/L (98-107)
[2021-10-28] MEDS: PANTOPRAZOLE SODIUM 40 MG/VIAL IV SCH (08:52)
[2021-10-28] MEDS: METOPROLOL TARTRATE 50MG TABLET PO SCH ×2 (08:52→22:26)
[2021-10-28] MEDS: FOLIC ACID/VITAMIN B COMP W-C TABLET PO SCH (08:52)
[2021-10-28 09:00] LABS: CHLORIDE 100 mEq/L (98-107)
[2021-10-28 09:14] LABS: BG BASE EXCESS -5.1 mmol/L (-2.0-2.0); BG CARBOXYHEMOGLOBIN 0.3 % (0.5-1.5); BG FRACTION INSPIRED OXYGEN 35; BG HCO3 ACT 20.6 mmol/L (22.0-26.0); BG METHEMOGLOBIN 0.3 % (0.0-1.5); BG OXYGEN SATURATION 87.9 % (92.0-98.5); BG OXYHEMOGLOBIN 87.4 % (94.0-97.0); BG PCO2 41.2 mmHg (35.0-45.0); BG PH 7.317 (7.350-7.450); BG PO2 63.7 mmHg (75.0-100.0); BG SAMPLE SITE RIGHT RADIAL; BG TOTAL HEMOGLOBIN 7.2 g/dL (12.0-18.0); BG TOTAL RESPIRATORY RATE 43 b/min; BG VENT MODE VENT - P/C
[2021-10-28] MEDS ORDERED: HALOPERIDOL LACTATE 5MG/ML VIAL IM NR (10:00)
[2021-10-28] MEDS ORDERED: FLUMAZENIL 0.1 MG/ML 5ML VIAL IV ONE (10:32)
[2021-10-28] MEDS ORDERED: NALOXONE HCL 0.4 MG/ML 1ML VIAL ONE (10:35)
[2021-10-28 11:52] LABS: PLATELET ESTIMATE NORMAL
[2021-10-28] MEDS ORDERED: CALCIUM GLUCONATE 100MG/ML 10ML VIAL IV ONE (12:00)
[2021-10-28] MEDS ORDERED: CALCIUM GLUCONATE 1GM PREMIX 50 ML IV SCH (14:00)
[2021-10-28] MEDS: NIFEDIPINE XL 30MG TAB PO SCH (17:00)
[2021-10-28] MEDS ORDERED: EPOETIN ALFA 10000UNITS/ML VIAL SUBCUT SCH (21:00)
[2021-10-28] MEDS: PROPOFOL 10MG/ML 100ML 100 ML IV PRN (22:28)
[2021-10-28 22:50] LABS: BG BASE EXCESS -7.5 mmol/L (-2.0-2.0); BG CARBOXYHEMOGLOBIN 0.2 % (0.5-1.5); BG DEOXYHEMOGLOBIN 18.7 % (0.0-5.0); BG FRACTION INSPIRED OXYGEN 100; BG HCO3 ACT 18.6 mmol/L (22.0-26.0); BG METHEMOGLOBIN 0.3 % (0.0-1.5); BG OXYGEN SATURATION 81.2 % (92.0-98.5); BG OXYHEMOGLOBIN 80.8 % (94.0-97.0); BG PCO2 40.2 mmHg (35.0-45.0); BG PH 7.283 (7.350-7.450); BG PO2 53.8 mmHg (75.0-100.0); BG SAMPLE SITE RIGHT RADIAL; BG TOTAL HEMOGLOBIN 8.3 g/dL (12.0-18.0); BG VENT MODE VENT - AC
[2021-10-29] VITALS (90 sets, daily range): BP systolic 85–158; BP diastolic 44–120
[2021-10-29] MEDS: IPRATROPIUM BROMIDE (0.02%) 0.5MG/2.5ML NEB HHN SCH ×6 (00:25→22:01)
[2021-10-29] MEDS: PROPOFOL 10MG/ML 100ML 100 ML IV PRN ×5 (01:27→20:47)
[2021-10-29 02:06] LABS: BG BASE EXCESS -6.2 mmol/L (-2.0-2.0); BG CARBOXYHEMOGLOBIN 0.3 % (0.5-1.5); BG DEOXYHEMOGLOBIN 16.9 % (0.0-5.0); BG FRACTION INSPIRED OXYGEN 100; BG HCO3 ACT 19.9 mmol/L (22.0-26.0); BG METHEMOGLOBIN 0.3 % (0.0-1.5); BG OXYHEMOGLOBIN 82.5 % (94.0-97.0); BG PCO2 42.1 mmHg (35.0-45.0); BG PH 7.292 (7.350-7.450); BG PO2 56.9 mmHg (75.0-100.0); BG SAMPLE SITE RIGHT RADIAL
[2021-10-29 02:57] LABS: BG VENT MODE VENT - AC
[2021-10-29 05:25] LABS: HEMATOCRIT. 22.3 % (42.0-52.0); HEMOGLOBIN. 7.7 g/dL (14.0-18.0); MEAN CORPUSCULAR HEMOGLOBIN 28.8 pg (28.0-32.0); MEAN CORPUSCULAR VOLUME 83.6 fL (80.0-94.0); MEAN PLATELET VOLUME 7.7 fl (7.4-10.4); PLATELET 317 x1000/uL (130-400); RED BLOOD CELL COUNT 2.66 mill/uL (4.7-6.1); RED CELL DISTRIBUTION WIDTH 18.1 % (11.6-14.6)
[2021-10-29] MEDS: CALCIUM ACETATE 667MG CAPSULE PO SCH ×3 (06:07→16:37)
[2021-10-29] MEDS: FENTANYL CITRATE/PF 2,500 MCG in SODIUM CHLORIDE 0.9% 200 ML IV PRN ×3 (06:08→23:34)
[2021-10-29] MEDS: PANTOPRAZOLE SODIUM 40 MG/VIAL IV SCH (08:12)
[2021-10-29] MEDS: FOLIC ACID/VITAMIN B COMP W-C TABLET PO SCH (08:12)
[2021-10-29] MEDS: METHYLPREDNISOLONE SOD SUCC 125 MG/2 ML VIAL IV SCH ×2 (08:12→16:38)
[2021-10-29] MEDS: METOPROLOL TARTRATE 50MG TABLET PO SCH ×2 (08:12→20:45)
[2021-10-29] MEDS: NIFEDIPINE XL 30MG TAB PO SCH (08:13)
[2021-10-29] MEDS ORDERED: CALCIUM CHLORIDE 1,000 MG in DEXT 5% WATER 90 ML IV NR (09:00)
[2021-10-29 10:48] LABS: BG BASE EXCESS -9.6 mmol/L (-2.0-2.0); BG DEOXYHEMOGLOBIN 19.2 % (0.0-5.0); BG HCO3 ACT 16.1 mmol/L (22.0-26.0); BG METHEMOGLOBIN 0.4 % (0.0-1.5); BG OXYGEN SATURATION 80.7 % (92.0-98.5); BG OXYHEMOGLOBIN 80.4 % (94.0-97.0); BG PCO2 34.4 mmHg (35.0-45.0); BG PH 7.289 (7.350-7.450); BG PO2 51.8 mmHg (75.0-100.0); BG SAMPLE SITE RIGHT RADIAL; BG TOTAL HEMOGLOBIN 9.1 g/dL (12.0-18.0); BG VENT MODE VENT- PRVC
[2021-10-29] MEDS: LORAZEPAM 2MG/ML CPJ IV PRN ×3 (11:46→23:31)
[2021-10-29 16:20] LABS: PLATELET ESTIMATE NORMAL
[2021-10-29] MEDS: ACETAMINOPHEN 325MG TABLET PO PRN (20:44)
[2021-10-30] VITALS (74 sets, daily range): BP systolic 81–167; BP diastolic 29–131
[2021-10-30] MEDS: PROPOFOL 10MG/ML 100ML 100 ML IV PRN ×6 (00:43→23:14)
[2021-10-30] MEDS ORDERED: MIDAZOLAM 100MG/100ML PMX 100 ML IV PRN (01:00)
[2021-10-30] MEDS: IPRATROPIUM BROMIDE (0.02%) 0.5MG/2.5ML NEB HHN SCH ×6 (01:54→20:34)
[2021-10-30] MEDS: MIDAZOLAM HCL 100 MG in SODIUM CHLORIDE 0.9% 100 ML IV PRN (02:05)
[2021-10-30] MEDS: CALCIUM ACETATE 667MG CAPSULE PO SCH ×3 (06:02→18:01)
[2021-10-30 06:04] LABS: HEMATOCRIT. 23.3 % (42.0-52.0); HEMOGLOBIN. 8.2 g/dL (14.0-18.0); MEAN CORPUSCULAR HEMOGLOBIN 29.1 pg (28.0-32.0); MEAN CORPUSCULAR VOLUME 82.4 fL (80.0-94.0); MEAN PLATELET VOLUME 7.5 fl (7.4-10.4); PLATELET 373 x1000/uL (130-400); RED BLOOD CELL COUNT 2.82 mill/uL (4.7-6.1); RED CELL DISTRIBUTION WIDTH 17.9 % (11.6-14.6)
[2021-10-30] MEDS: FENTANYL CITRATE/PF 2,500 MCG in SODIUM CHLORIDE 0.9% 200 ML IV PRN (07:37)
[2021-10-30] MEDS: METOPROLOL TARTRATE 50MG TABLET PO SCH ×2 (08:41→21:50)
[2021-10-30] MEDS: METHYLPREDNISOLONE SOD SUCC 125 MG/2 ML VIAL IV SCH ×2 (08:41→18:01)
[2021-10-30] MEDS: PANTOPRAZOLE SODIUM 40 MG/VIAL IV SCH (08:41)
[2021-10-30] MEDS: NIFEDIPINE XL 30MG TAB PO SCH (08:42)
[2021-10-30] MEDS: FOLIC ACID/VITAMIN B COMP W-C TABLET PO SCH (08:42)
[2021-10-30 10:19] LABS: BG CARBOXYHEMOGLOBIN 0.3 % (0.5-1.5); BG DEOXYHEMOGLOBIN 0.6 % (0.0-5.0); BG FRACTION INSPIRED OXYGEN 100; BG HCO3 ACT 16.5 mmol/L (22.0-26.0); BG METHEMOGLOBIN 0.8 % (0.0-1.5); BG OXYGEN SATURATION 99.4 % (92.0-98.5); BG OXYHEMOGLOBIN 98.3 % (94.0-97.0); BG PCO2 29.7 mmHg (35.0-45.0); BG PH 7.363 (7.350-7.450); BG PO2 521.4 mmHg (75.0-100.0); BG SAMPLE SITE RIGHT RADIAL; BG TOTAL HEMOGLOBIN 7.5 g/dL (12.0-18.0); BG TOTAL RESPIRATORY RATE 18 b/min; BG VENT MODE VENT- PRVC
[2021-10-30 16:02] LABS: PLATELET ESTIMATE NORMAL
[2021-10-30] MEDS: EPOETIN ALFA-EPBX 10,000 UNIT/ML VIAL SUBCUT SCH (21:50)
[2021-10-31] VITALS (71 sets, daily range): BP systolic 83–173; BP diastolic 31–95
[2021-10-31] MEDS: IPRATROPIUM BROMIDE (0.02%) 0.5MG/2.5ML NEB HHN SCH ×6 (00:47→20:39)
[2021-10-31] MEDS: MIDAZOLAM HCL 100 MG in SODIUM CHLORIDE 0.9% 100 ML IV PRN ×2 (00:56→18:25)
[2021-10-31] MEDS: PROPOFOL 10MG/ML 100ML 100 ML IV PRN ×5 (02:38→20:59)
[2021-10-31] MEDS: FENTANYL CITRATE/PF 2,500 MCG in SODIUM CHLORIDE 0.9% 200 ML IV PRN ×2 (02:45→21:00)
[2021-10-31] MEDS: CALCIUM ACETATE 667MG CAPSULE PO SCH ×3 (06:07→16:07)
[2021-10-31 06:45] LABS: PHOSPHORUS 7.2 mg/dL (2.5-4.9)
[2021-10-31 07:51] LABS: BG BASE EXCESS -9.6 mmol/L (-2.0-2.0); BG CARBOXYHEMOGLOBIN 0.4 % (0.5-1.5); BG DEOXYHEMOGLOBIN 1.1 % (0.0-5.0); BG HCO3 ACT 16.3 mmol/L (22.0-26.0); BG METHEMOGLOBIN 0.4 % (0.0-1.5); BG OXYGEN SATURATION 98.9 % (92.0-98.5); BG OXYHEMOGLOBIN 98.1 % (94.0-97.0); BG PCO2 35.7 mmHg (35.0-45.0); BG PH 7.278 (7.350-7.450); BG PO2 188.7 mmHg (75.0-100.0); BG SAMPLE SITE RIGHT RADIAL; BG TOTAL HEMOGLOBIN 7.7 g/dL (12.0-18.0); BG VENT MODE VENT- PRVC
[2021-10-31] MEDS: PANTOPRAZOLE SODIUM 40 MG/VIAL IV SCH (08:07)
[2021-10-31] MEDS: FOLIC ACID/VITAMIN B COMP W-C TABLET PO SCH (08:07)
[2021-10-31] MEDS: METHYLPREDNISOLONE SOD SUCC 125 MG/2 ML VIAL IV SCH (08:07)
[2021-10-31] MEDS: METOPROLOL TARTRATE 50MG TABLET PO SCH ×2 (08:08→20:58)
[2021-10-31] MEDS: NIFEDIPINE XL 30MG TAB PO SCH (08:08)
[2021-10-31] MEDS ORDERED: PROPOFOL 10MG/ML 100ML 100 ML IV PRN (12:00)
[2021-10-31] MEDS: DEXAMETHASONE 10 MG/ML VIAL IV SCH (12:42)
[2021-10-31] MEDS: ACETAMINOPHEN 325MG TABLET PO PRN (20:57)
[2021-11-01] VITALS (96 sets, daily range): BP systolic 111–164; BP diastolic 33–115
[2021-11-01] MEDS: IPRATROPIUM BROMIDE (0.02%) 0.5MG/2.5ML NEB HHN SCH ×5 (00:26→20:33)
[2021-11-01] MEDS: PROPOFOL 10MG/ML 100ML 100 ML IV PRN ×4 (01:06→15:11)
[2021-11-01 06:15] LABS: HEMATOCRIT. 21.9 % (42.0-52.0); HEMOGLOBIN. 7.7 g/dL (14.0-18.0); MEAN CORPUSCULAR HEMOGLOBIN 28.8 pg (28.0-32.0); MEAN CORPUSCULAR VOLUME 82.2 fL (80.0-94.0); MEAN PLATELET VOLUME 7.9 fl (7.4-10.4); PLATELET 425 x1000/uL (130-400); RED BLOOD CELL COUNT 2.67 mill/uL (4.7-6.1); RED CELL DISTRIBUTION WIDTH 18.4 % (11.6-14.6)
[2021-11-01] MEDS: CALCIUM ACETATE 667MG CAPSULE PO SCH ×3 (06:19→20:59)
[2021-11-01] MEDS: FENTANYL CITRATE/PF 2,500 MCG in SODIUM CHLORIDE 0.9% 200 ML IV PRN ×3 (06:20→23:58)
[2021-11-01 07:39] LABS: PLATELET ESTIMATE INCREASED
[2021-11-01] MEDS: PANTOPRAZOLE SODIUM 40 MG/VIAL IV SCH (08:07)
[2021-11-01] MEDS: DEXAMETHASONE 10 MG/ML VIAL IV SCH (08:07)
[2021-11-01] MEDS: FOLIC ACID/VITAMIN B COMP W-C TABLET PO SCH (08:07)
[2021-11-01] MEDS: MIDAZOLAM HCL 100 MG in SODIUM CHLORIDE 0.9% 100 ML IV PRN ×2 (08:08→21:00)
[2021-11-01 10:06] LABS: BG BASE EXCESS -10.4 mmol/L (-2.0-2.0); BG CARBOXYHEMOGLOBIN 0.3 % (0.5-1.5); BG DEOXYHEMOGLOBIN 13.9 % (0.0-5.0); BG FRACTION INSPIRED OXYGEN 40; BG HCO3 ACT 15.6 mmol/L (22.0-26.0); BG METHEMOGLOBIN 0.4 % (0.0-1.5); BG OXYHEMOGLOBIN 85.4 % (94.0-97.0); BG PCO2 34.6 mmHg (35.0-45.0); BG PH 7.271 (7.350-7.450); BG PO2 58.4 mmHg (75.0-100.0); BG SAMPLE SITE LEFT RADIAL; BG TOTAL HEMOGLOBIN 9.5 g/dL (12.0-18.0); BG VENT MODE PRVC
[2021-11-01] MEDS: NIFEDIPINE XL 30MG TAB PO SCH (12:25)
[2021-11-01] MEDS: METOPROLOL TARTRATE 50MG TABLET PO SCH ×2 (12:25→20:59)
[2021-11-01] MEDS: EPOETIN ALFA-EPBX 10,000 UNIT/ML VIAL SUBCUT SCH (20:59)
[2021-11-02] VITALS (90 sets, daily range): BP systolic 79–168; BP diastolic 28–103
[2021-11-02] MEDS: IPRATROPIUM BROMIDE (0.02%) 0.5MG/2.5ML NEB HHN SCH ×6 (00:19→21:02)
[2021-11-02] MEDS: PROPOFOL 10MG/ML 100ML 100 ML IV PRN ×6 (04:45→22:35)
[2021-11-02] MEDS: MIDAZOLAM HCL 100 MG in SODIUM CHLORIDE 0.9% 100 ML IV PRN ×3 (04:46→21:58)
[2021-11-02 05:14] LABS: HEMATOCRIT. 24.5 % (42.0-52.0); HEMOGLOBIN. 8.9 g/dL (14.0-18.0); MEAN CORPUSCULAR HEMOGLOBIN 29.7 pg (28.0-32.0); MEAN CORPUSCULAR VOLUME 81.3 fL (80.0-94.0); MEAN PLATELET VOLUME 7.4 fl (7.4-10.4); PLATELET 479 x1000/uL (130-400); RED BLOOD CELL COUNT 3.01 mill/uL (4.7-6.1); RED CELL DISTRIBUTION WIDTH 18.6 % (11.6-14.6)
[2021-11-02] MEDS: CALCIUM ACETATE 667MG CAPSULE PO SCH ×3 (06:12→17:33)
[2021-11-02 08:12] LABS: BG BASE EXCESS -4.5 mmol/L (-2.0-2.0); BG CARBOXYHEMOGLOBIN 0.1 % (0.5-1.5); BG DEOXYHEMOGLOBIN 13.9 % (0.0-5.0); BG HCO3 ACT 21.1 mmol/L (22.0-26.0); BG METHEMOGLOBIN 0.9 % (0.0-1.5); BG OXYHEMOGLOBIN 85.1 % (94.0-97.0); BG PCO2 41.7 mmHg (35.0-45.0); BG PH 7.323 (7.350-7.450); BG PO2 55.7 mmHg (75.0-100.0); BG SAMPLE SITE RIGHT RADIAL; BG TOTAL HEMOGLOBIN 7.4 g/dL (12.0-18.0); BG VENT MODE VENT - SIMV
[2021-11-02] MEDS: FENTANYL CITRATE/PF 2,500 MCG in SODIUM CHLORIDE 0.9% 200 ML IV PRN ×3 (08:20→22:29)
[2021-11-02] MEDS: METOPROLOL TARTRATE 50MG TABLET PO SCH ×2 (08:20→21:00)
[2021-11-02] MEDS: NIFEDIPINE XL 30MG TAB PO SCH (08:21)
[2021-11-02] MEDS: FOLIC ACID/VITAMIN B COMP W-C TABLET PO SCH (08:21)
[2021-11-02] MEDS: PANTOPRAZOLE SODIUM 40 MG/VIAL IV SCH (08:22)
[2021-11-02] MEDS: DEXAMETHASONE 10 MG/ML VIAL IV SCH (08:22)
[2021-11-02 09:54] LABS: NUCLEATED RED BLOOD CELLS 1 /100 WBC; PLATELET ESTIMATE INCREASED
[2021-11-02] MEDS: CEFEPIME 2,000 MG in DEXT 5% WATER 100 ML IV SCH (16:06)
[2021-11-02] MEDS: QUETIAPINE FUMARATE 25MG TABLET PO SCH (20:59)
[2021-11-03] VITALS (99 sets, daily range): BP systolic 107–145; BP diastolic 55–106
[2021-11-03] MEDS: IPRATROPIUM BROMIDE (0.02%) 0.5MG/2.5ML NEB HHN SCH ×6 (00:37→21:25)
[2021-11-03] MEDS: PROPOFOL 10MG/ML 100ML 100 ML IV PRN ×3 (04:33→23:42)
[2021-11-03] MEDS: CALCIUM ACETATE 667MG CAPSULE PO SCH ×3 (06:01→16:05)
[2021-11-03] MEDS: FENTANYL CITRATE/PF 2,500 MCG in SODIUM CHLORIDE 0.9% 200 ML IV PRN ×3 (06:25→22:53)
[2021-11-03 07:16] LABS: RED BLOOD CELL COUNT 2.28 mill/uL (4.7-6.1)
[2021-11-03 07:17] LABS: MEAN CORPUSCULAR VOLUME 82.3 fL (80.0-94.0); RED CELL DISTRIBUTION WIDTH 19.2 % (11.6-14.6)
[2021-11-03 07:18] LABS: MEAN PLATELET VOLUME 7.3 fl (7.4-10.4); PLATELET 345 x1000/uL (130-400)
[2021-11-03 07:20] LABS: HEMATOCRIT. 18.7 % (42.0-52.0); HEMOGLOBIN. 6.4 g/dL (14.0-18.0)
[2021-11-03 07:21] LABS: MEAN CORPUSCULAR HEMOGLOBIN 28.1 pg (28.0-32.0)
[2021-11-03] MEDS ORDERED: CALCIUM CHLORIDE 1,000 MG in DEXT 5% WATER 90 ML IV SCH (07:30)
[2021-11-03] MEDS: MIDAZOLAM HCL 100 MG in SODIUM CHLORIDE 0.9% 100 ML IV PRN ×2 (08:08→16:04)
[2021-11-03] MEDS ORDERED: POTASSIUM CHLORIDE 10MEQ TABLET SR PO SCH (08:30)
[2021-11-03 08:53] LABS: BG BASE EXCESS -6.1 mmol/L (-2.0-2.0); BG CARBOXYHEMOGLOBIN 0.6 % (0.5-1.5); BG HCO3 ACT 19.8 mmol/L (22.0-26.0); BG OXYGEN SATURATION 95.9 % (92.0-98.5); BG OXYHEMOGLOBIN 94.4 % (94.0-97.0); BG PCO2 40.8 mmHg (35.0-45.0); BG PH 7.303 (7.350-7.450); BG PO2 89.2 mmHg (75.0-100.0); BG SAMPLE SITE RIGHT RADIAL; BG TOTAL HEMOGLOBIN 6.7 g/dL (12.0-18.0); BG VENT MODE VENT- PRVC
[2021-11-03] MEDS: DEXAMETHASONE 10 MG/ML VIAL IV SCH (09:14)
[2021-11-03] MEDS: PANTOPRAZOLE SODIUM 40 MG/VIAL IV SCH (09:14)
[2021-11-03] MEDS: QUETIAPINE FUMARATE 25MG TABLET PO SCH ×2 (09:15→20:44)
[2021-11-03] MEDS: METOPROLOL TARTRATE 50MG TABLET PO SCH ×2 (09:15→20:44)
[2021-11-03] MEDS: FOLIC ACID/VITAMIN B COMP W-C TABLET PO SCH (09:15)
[2021-11-03] MEDS: NIFEDIPINE XL 30MG TAB PO SCH (09:15)
[2021-11-03 11:16] LABS: NUCLEATED RED BLOOD CELLS 1 /100 WBC
[2021-11-03 11:17] LABS: PLATELET ESTIMATE NORMAL
[2021-11-03] MEDS ORDERED: PROPOFOL 10MG/ML 100ML 100 ML IV PRN ×2 (15:00→16:15)
[2021-11-03] MEDS: CEFEPIME 2,000 MG in DEXT 5% WATER 100 ML IV SCH (17:21)
[2021-11-03 21:10] LABS: HEMATOCRIT 24.6 % (42.0-52.0); HEMOGLOBIN 9.2 g/dL (14.0-18.0)
[2021-11-04] VITALS (56 sets, daily range): BP systolic 95–142; BP diastolic 42–94
[2021-11-04] MEDS: IPRATROPIUM BROMIDE (0.02%) 0.5MG/2.5ML NEB HHN SCH ×6 (01:50→21:09)
[2021-11-04] MEDS: MIDAZOLAM HCL 100 MG in SODIUM CHLORIDE 0.9% 100 ML IV PRN ×3 (02:20→21:12)
[2021-11-04] MEDS: PROPOFOL 10MG/ML 100ML 100 ML IV PRN ×3 (05:49→21:01)
[2021-11-04 06:36] LABS: HEMOGLOBIN. 8.9 g/dL (14.0-18.0); MEAN CORPUSCULAR HEMOGLOBIN 29.3 pg (28.0-32.0); MEAN CORPUSCULAR VOLUME 82.4 fL (80.0-94.0); RED BLOOD CELL COUNT 3.04 mill/uL (4.7-6.1)
[2021-11-04 06:37] LABS: MEAN PLATELET VOLUME 7.5 fl (7.4-10.4); PLATELET 256 x1000/uL (130-400); RED CELL DISTRIBUTION WIDTH 18.2 % (11.6-14.6)
[2021-11-04] MEDS: FENTANYL CITRATE/PF 2,500 MCG in SODIUM CHLORIDE 0.9% 200 ML IV PRN ×3 (07:01→23:23)
[2021-11-04 09:13] LABS: BG CARBOXYHEMOGLOBIN 0.4 % (0.5-1.5); BG DEOXYHEMOGLOBIN 0.8 % (0.0-5.0); BG FRACTION INSPIRED OXYGEN 50; BG HCO3 ACT 17.8 mmol/L (22.0-26.0); BG METHEMOGLOBIN 0.8 % (0.0-1.5); BG OXYGEN SATURATION 99.2 % (92.0-98.5); BG PCO2 37.1 mmHg (35.0-45.0); BG PH 7.298 (7.350-7.450); BG PO2 204.7 mmHg (75.0-100.0); BG SAMPLE SITE RIGHT RADIAL; BG TOTAL HEMOGLOBIN 8.9 g/dL (12.0-18.0); BG VENT MODE PRVC
[2021-11-04 10:21] LABS: PLATELET ESTIMATE NORMAL
[2021-11-04] MEDS: DEXAMETHASONE 10 MG/ML VIAL IV SCH (12:38)
[2021-11-04] MEDS: QUETIAPINE FUMARATE 25MG TABLET PO SCH ×2 (12:38→21:03)
[2021-11-04] MEDS: FOLIC ACID/VITAMIN B COMP W-C TABLET PO SCH (12:39)
[2021-11-04] MEDS: CALCIUM ACETATE 667MG CAPSULE PO SCH ×3 (12:39→17:02)
[2021-11-04] MEDS: NIFEDIPINE XL 30MG TAB PO SCH (12:40)
[2021-11-04] MEDS: PANTOPRAZOLE SODIUM 40 MG/VIAL IV SCH (12:40)
[2021-11-04] MEDS: METOPROLOL TARTRATE 50MG TABLET PO SCH ×2 (12:40→21:02)
[2021-11-04] MEDS: CEFEPIME 1,000 MG in DEXTROSE 5% WATER 50 ML IV SCH (17:02)
[2021-11-05] VITALS (54 sets, daily range): BP systolic 112–174; BP diastolic 51–125
[2021-11-05] MEDS: IPRATROPIUM BROMIDE (0.02%) 0.5MG/2.5ML NEB HHN SCH ×6 (01:08→20:18)
[2021-11-05] MEDS ORDERED: PROPOFOL 10MG/ML 100ML 100 ML IV PRN (04:15)
[2021-11-05] MEDS: PROPOFOL 10MG/ML 100ML 100 ML IV PRN ×3 (06:14→20:34)
[2021-11-05] MEDS: MIDAZOLAM HCL 100 MG in SODIUM CHLORIDE 0.9% 100 ML IV PRN ×4 (06:16→20:42)
[2021-11-05 06:27] LABS: PHOSPHORUS 5.7 mg/dL (2.5-4.9)
[2021-11-05] MEDS: CALCIUM ACETATE 667MG CAPSULE PO SCH ×3 (07:00→16:08)
[2021-11-05] MEDS ORDERED: LIDOCAINE HCL/EPINEPHRINE 1%-EPI 1:100,000 10 ML VIAL INFIL SCH (07:30)
[2021-11-05] MEDS: DEXAMETHASONE 10 MG/ML VIAL IV SCH (08:20)
[2021-11-05] MEDS: NIFEDIPINE XL 30MG TAB PO SCH (08:20)
[2021-11-05] MEDS: PANTOPRAZOLE SODIUM 40 MG/VIAL IV SCH (08:20)
[2021-11-05] MEDS: FOLIC ACID/VITAMIN B COMP W-C TABLET PO SCH (08:20)
[2021-11-05] MEDS: METOPROLOL TARTRATE 50MG TABLET PO SCH ×2 (08:21→20:27)
[2021-11-05] MEDS: QUETIAPINE FUMARATE 25MG TABLET PO SCH (08:21)
[2021-11-05] MEDS: ACETAMINOPHEN 325MG TABLET PO PRN (08:21)
[2021-11-05] MEDS ORDERED: ETOMIDATE 2MG/ML 10ML VIAL IV ONE (09:02)
[2021-11-05] MEDS ORDERED: VECURONIUM BROMIDE 10 MG/VIAL IV ONE (09:02)
[2021-11-05] MEDS ORDERED: SODIUM CHLORIDE 0.9% 10ML VIAL ONE (09:02)
[2021-11-05] MEDS: FENTANYL CITRATE/PF 2,500 MCG in SODIUM CHLORIDE 0.9% 200 ML IV PRN ×3 (09:26→22:09)
[2021-11-05 09:47] LABS: HEMATOCRIT. 27.2 % (42.0-52.0); MEAN CORPUSCULAR VOLUME 83.1 fL (80.0-94.0); RED BLOOD CELL COUNT 3.28 mill/uL (4.7-6.1)
[2021-11-05 09:48] LABS: MEAN PLATELET VOLUME 7.4 fl (7.4-10.4); PLATELET 186 x1000/uL (130-400); RED CELL DISTRIBUTION WIDTH 18.5 % (11.6-14.6)
[2021-11-05 09:49] LABS: MEAN CORPUSCULAR HEMOGLOBIN 27.5 pg (28.0-32.0)
[2021-11-05 09:52] LABS: BG BASE EXCESS -8.5 mmol/L (-2.0-2.0); BG CARBOXYHEMOGLOBIN 0.3 % (0.5-1.5); BG HCO3 ACT 16.9 mmol/L (22.0-26.0); BG METHEMOGLOBIN 0.6 % (0.0-1.5); BG OXYHEMOGLOBIN 98.1 % (94.0-97.0); BG PCO2 34.3 mmHg (35.0-45.0); BG PO2 218.5 mmHg (75.0-100.0); BG SAMPLE SITE LEFT RADIAL; BG TOTAL HEMOGLOBIN 9.3 g/dL (12.0-18.0); BG VENT MODE VENT- PRVC
[2021-11-05 10:58] LABS: PLATELET ESTIMATE NORMAL
[2021-11-05] MEDS: CEFEPIME 1,000 MG in DEXTROSE 5% WATER 50 ML IV SCH (17:35)
[2021-11-05] MEDS: QUETIAPINE FUMARATE 50MG TABLET PO SCH (20:26)
[2021-11-06] VITALS (72 sets, daily range): BP systolic 103–187; BP diastolic 40–127
[2021-11-06] MEDS: IPRATROPIUM BROMIDE (0.02%) 0.5MG/2.5ML NEB HHN SCH ×6 (01:29→20:00)
[2021-11-06] MEDS: MIDAZOLAM HCL 100 MG in SODIUM CHLORIDE 0.9% 100 ML IV PRN ×3 (04:34→17:14)
[2021-11-06] MEDS: PROPOFOL 10MG/ML 100ML 100 ML IV PRN ×3 (04:36→18:56)
[2021-11-06 06:28] LABS: HEMATOCRIT. 24.7 % (42.0-52.0); HEMOGLOBIN. 8.9 g/dL (14.0-18.0); MEAN CORPUSCULAR HEMOGLOBIN 30.4 pg (28.0-32.0); MEAN CORPUSCULAR VOLUME 84.1 fL (80.0-94.0); MEAN PLATELET VOLUME 7.4 fl (7.4-10.4); PLATELET 132 x1000/uL (130-400); RED BLOOD CELL COUNT 2.93 mill/uL (4.7-6.1); RED CELL DISTRIBUTION WIDTH 18.8 % (11.6-14.6)
[2021-11-06] MEDS: CALCIUM ACETATE 667MG CAPSULE PO SCH ×3 (06:30→17:14)
[2021-11-06] MEDS: FENTANYL CITRATE/PF 2,500 MCG in SODIUM CHLORIDE 0.9% 200 ML IV PRN ×3 (07:49→23:04)
[2021-11-06] MEDS: QUETIAPINE FUMARATE 50MG TABLET PO SCH ×2 (08:01→20:48)
[2021-11-06] MEDS: FOLIC ACID/VITAMIN B COMP W-C TABLET PO SCH (08:01)
[2021-11-06] MEDS: NIFEDIPINE XL 30MG TAB PO SCH (08:02)
[2021-11-06] MEDS: DEXAMETHASONE 10 MG/ML VIAL IV SCH (08:03)
[2021-11-06] MEDS: PANTOPRAZOLE SODIUM 40 MG/VIAL IV SCH (08:03)
[2021-11-06] MEDS: METOPROLOL TARTRATE 50MG TABLET PO SCH ×2 (08:03→20:49)
[2021-11-06 09:31] LABS: BG BASE EXCESS -9.1 mmol/L (-2.0-2.0); BG CARBOXYHEMOGLOBIN 0.2 % (0.5-1.5); BG DEOXYHEMOGLOBIN 4.4 % (0.0-5.0); BG FRACTION INSPIRED OXYGEN 40; BG HCO3 ACT 16.4 mmol/L (22.0-26.0); BG OXYGEN SATURATION 95.6 % (92.0-98.5); BG OXYHEMOGLOBIN 95.4 % (94.0-97.0); BG PH 7.301 (7.350-7.450); BG PO2 84.6 mmHg (75.0-100.0); BG SAMPLE SITE RIGHT RADIAL; BG TOTAL HEMOGLOBIN 9.4 g/dL (12.0-18.0); BG VENT MODE VENT - PRVC
[2021-11-06 13:39] LABS: PLATELET ESTIMATE NORMAL
[2021-11-06] MEDS: CEFEPIME 1,000 MG in DEXTROSE 5% WATER 50 ML IV SCH (17:14)
[2021-11-07] VITALS (94 sets, daily range): BP systolic 105–174; BP diastolic 47–131
[2021-11-07] MEDS: IPRATROPIUM BROMIDE (0.02%) 0.5MG/2.5ML NEB HHN SCH ×6 (00:12→20:28)
[2021-11-07] MEDS: PROPOFOL 10MG/ML 100ML 100 ML IV PRN ×4 (00:41→22:10)
[2021-11-07] MEDS: MIDAZOLAM HCL 100 MG in SODIUM CHLORIDE 0.9% 100 ML IV PRN ×4 (00:43→23:12)
[2021-11-07 05:31] LABS: MEAN CORPUSCULAR VOLUME 82.4 fL (80.0-94.0); MEAN PLATELET VOLUME 7.3 fl (7.4-10.4); PLATELET 124 x1000/uL (130-400); RED BLOOD CELL COUNT 2.56 mill/uL (4.7-6.1); RED CELL DISTRIBUTION WIDTH 19.1 % (11.6-14.6)
[2021-11-07] MEDS: CALCIUM ACETATE 667MG CAPSULE PO SCH ×3 (06:19→17:00)
[2021-11-07] MEDS: FENTANYL CITRATE/PF 2,500 MCG in SODIUM CHLORIDE 0.9% 200 ML IV PRN ×3 (06:45→22:05)
[2021-11-07 07:48] LABS: HEMOGLOBIN. 7.3 g/dL (14.0-18.0)
[2021-11-07 07:49] LABS: MEAN CORPUSCULAR HEMOGLOBIN 28.5 pg (28.0-32.0)
[2021-11-07] MEDS: NIFEDIPINE XL 30MG TAB PO SCH (08:06)
[2021-11-07] MEDS: FOLIC ACID/VITAMIN B COMP W-C TABLET PO SCH (08:30)
[2021-11-07] MEDS: DEXAMETHASONE 10 MG/ML VIAL IV SCH (08:30)
[2021-11-07] MEDS: QUETIAPINE FUMARATE 50MG TABLET PO SCH ×2 (08:30→20:22)
[2021-11-07] MEDS: PANTOPRAZOLE SODIUM 40 MG/VIAL IV SCH (08:30)
[2021-11-07] MEDS: METOPROLOL TARTRATE 50MG TABLET PO SCH ×2 (08:31→20:23)
[2021-11-07 08:47] LABS: PLATELET ESTIMATE SLIGHTLY DECREASED
[2021-11-07 09:47] LABS: BG BASE EXCESS -1.1 mmol/L (-2.0-2.0); BG CARBOXYHEMOGLOBIN 0.6 % (0.5-1.5); BG DEOXYHEMOGLOBIN 5.8 % (0.0-5.0); BG FRACTION INSPIRED OXYGEN 50; BG HCO3 ACT 23.4 mmol/L (22.0-26.0); BG METHEMOGLOBIN 0.3 % (0.0-1.5); BG OXYGEN SATURATION 94.1 % (92.0-98.5); BG OXYHEMOGLOBIN 93.3 % (94.0-97.0); BG PCO2 38.1 mmHg (35.0-45.0); BG PH 7.407 (7.350-7.450); BG PO2 73.2 mmHg (75.0-100.0); BG SAMPLE SITE LEFT RADIAL; BG TOTAL HEMOGLOBIN 7.2 g/dL (12.0-18.0); BG TOTAL RESPIRATORY RATE 25 b/min; BG VENT MODE VENT- PRVC
[2021-11-07] MEDS ORDERED: LIDOCAINE HCL 1% 20ML VIAL (Pyxis) INJ ONE (10:50)
[2021-11-07 13:23] LABS: INR 1.1; PROTHROMBIN TIME 11.4 sec (9.6-11.0)
[2021-11-07 14:02] LABS: D-DIMER > 35.20 mg/L FEU (<0.50)
[2021-11-07 14:04] LABS: FIBRINOGEN > 900 mg/dL (200-400)
[2021-11-08] VITALS (76 sets, daily range): BP systolic 131–188; BP diastolic 67–130
[2021-11-08] MEDS: IPRATROPIUM BROMIDE (0.02%) 0.5MG/2.5ML NEB HHN SCH ×6 (00:08→21:44)
[2021-11-08] MEDS: PROPOFOL 10MG/ML 100ML 100 ML IV PRN ×3 (04:42→17:39)
[2021-11-08 05:29] LABS: HEMATOCRIT. 24.3 % (42.0-52.0); HEMOGLOBIN. 8.7 g/dL (14.0-18.0); MEAN CORPUSCULAR HEMOGLOBIN 29.3 pg (28.0-32.0); MEAN CORPUSCULAR VOLUME 81.7 fL (80.0-94.0); MEAN PLATELET VOLUME 7.6 fl (7.4-10.4); PLATELET 115 x1000/uL (130-400); RED BLOOD CELL COUNT 2.98 mill/uL (4.7-6.1); RED CELL DISTRIBUTION WIDTH 18.8 % (11.6-14.6)
[2021-11-08] MEDS: MIDAZOLAM HCL 100 MG in SODIUM CHLORIDE 0.9% 100 ML IV PRN ×3 (05:47→23:39)
[2021-11-08] MEDS: FENTANYL CITRATE/PF 2,500 MCG in SODIUM CHLORIDE 0.9% 200 ML IV PRN ×3 (05:49→21:21)
[2021-11-08] MEDS: CALCIUM ACETATE 667MG CAPSULE PO SCH ×3 (05:49→17:01)
[2021-11-08] MEDS: PANTOPRAZOLE SODIUM 40 MG/VIAL IV SCH (08:46)
[2021-11-08] MEDS: DEXAMETHASONE 10 MG/ML VIAL IV SCH (08:46)
[2021-11-08] MEDS: FOLIC ACID/VITAMIN B COMP W-C TABLET PO SCH (08:46)
[2021-11-08] MEDS: QUETIAPINE FUMARATE 50MG TABLET PO SCH ×2 (08:46→21:32)
[2021-11-08] MEDS: METOPROLOL TARTRATE 50MG TABLET PO SCH ×2 (08:47→21:32)
[2021-11-08] MEDS: NIFEDIPINE XL 30MG TAB PO SCH (09:00)
[2021-11-08 09:43] LABS: BG BASE EXCESS -4.2 mmol/L (-2.0-2.0); BG CARBOXYHEMOGLOBIN 0.6 % (0.5-1.5); BG DEOXYHEMOGLOBIN 2.8 % (0.0-5.0); BG FRACTION INSPIRED OXYGEN 80; BG HCO3 ACT 20.1 mmol/L (22.0-26.0); BG METHEMOGLOBIN 0.3 % (0.0-1.5); BG OXYGEN SATURATION 97.2 % (92.0-98.5); BG OXYHEMOGLOBIN 96.3 % (94.0-97.0); BG PCO2 33.1 mmHg (35.0-45.0); BG PH 7.401 (7.350-7.450); BG PO2 98.7 mmHg (75.0-100.0); BG SAMPLE SITE LEFT RADIAL; BG TOTAL HEMOGLOBIN 8.2 g/dL (12.0-18.0); BG TOTAL RESPIRATORY RATE 39 b/min; BG VENT MODE VENT- PRVC
[2021-11-08 09:52] LABS: PLATELET ESTIMATE DECREASED
[2021-11-08] MEDS: ENOXAPARIN 60MG/0.6ML SYR SUBCUT SCH (13:23)
[2021-11-09] VITALS (92 sets, daily range): BP systolic 103–190; BP diastolic 50–119
[2021-11-09] MEDS: PROPOFOL 10MG/ML 100ML 100 ML IV PRN ×5 (00:46→23:23)
[2021-11-09] MEDS: IPRATROPIUM BROMIDE (0.02%) 0.5MG/2.5ML NEB HHN SCH ×6 (00:53→21:41)
[2021-11-09] MEDS: FENTANYL CITRATE/PF 2,500 MCG in DEXT 5% WATER 200 ML IV PRN ×3 (04:20→20:33)
[2021-11-09 06:38] LABS: HEMATOCRIT. 25.4 % (42.0-52.0); MEAN CORPUSCULAR VOLUME 81.2 fL (80.0-94.0); MEAN PLATELET VOLUME 8.6 fl (7.4-10.4); RED BLOOD CELL COUNT 3.14 mill/uL (4.7-6.1); RED CELL DISTRIBUTION WIDTH 19.5 % (11.6-14.6)
[2021-11-09 07:03] LABS: HEMOGLOBIN. 8.7 g/dL (14.0-18.0); MEAN CORPUSCULAR HEMOGLOBIN 27.7 pg (28.0-32.0)
[2021-11-09 07:17] LABS: NUCLEATED RED BLOOD CELLS 1 /100 WBC
[2021-11-09 07:18] LABS: PLATELET 143 x1000/uL (130-400); PLATELET ESTIMATE NORMAL
[2021-11-09] MEDS: MIDAZOLAM HCL 100 MG in SODIUM CHLORIDE 0.9% 100 ML IV PRN ×3 (07:51→20:35)
[2021-11-09] MEDS: QUETIAPINE FUMARATE 50MG TABLET PO SCH ×2 (08:58→22:06)
[2021-11-09] MEDS: NIFEDIPINE XL 30MG TAB PO SCH (08:58)
[2021-11-09] MEDS: CALCIUM ACETATE 667MG CAPSULE PO SCH ×3 (08:58→18:21)
[2021-11-09] MEDS: FOLIC ACID/VITAMIN B COMP W-C TABLET PO SCH (08:59)
[2021-11-09] MEDS: PANTOPRAZOLE SODIUM 40 MG/VIAL IV SCH (08:59)
[2021-11-09] MEDS: METOPROLOL TARTRATE 50MG TABLET PO SCH ×2 (08:59→22:07)
[2021-11-09] MEDS: ENOXAPARIN 60MG/0.6ML SYR SUBCUT SCH (09:00)
[2021-11-09 09:49] LABS: BG CARBOXYHEMOGLOBIN 0.9 % (0.5-1.5); BG DEOXYHEMOGLOBIN 5.5 % (0.0-5.0); BG FRACTION INSPIRED OXYGEN 50; BG HCO3 ACT 21.8 mmol/L (22.0-26.0); BG METHEMOGLOBIN 0.3 % (0.0-1.5); BG OXYGEN SATURATION 94.4 % (92.0-98.5); BG OXYHEMOGLOBIN 93.3 % (94.0-97.0); BG PCO2 33.2 mmHg (35.0-45.0); BG PH 7.436 (7.350-7.450); BG PO2 71.4 mmHg (75.0-100.0); BG TOTAL HEMOGLOBIN 8.6 g/dL (12.0-18.0); BG VENT MODE PRVC
[2021-11-09] MEDS: DEXAMETHASONE 10 MG/ML VIAL IV SCH (09:50)
[2021-11-09] MEDS ORDERED: HYDRALAZINE HCL 100MG TABLET PO NR (10:45)
[2021-11-09] MEDS: HYDRALAZINE HCL 100MG TABLET PO SCH (22:07)
[2021-11-10] VITALS (95 sets, daily range): BP systolic 103–141; BP diastolic 49–92
[2021-11-10] MEDS: IPRATROPIUM BROMIDE (0.02%) 0.5MG/2.5ML NEB HHN SCH ×6 (00:54→20:20)
[2021-11-10] MEDS: FENTANYL CITRATE/PF 2,500 MCG in SODIUM CHLORIDE 0.9% 200 ML IV PRN ×2 (03:50→20:12)
[2021-11-10] MEDS: MIDAZOLAM HCL 100 MG in SODIUM CHLORIDE 0.9% 100 ML IV PRN ×3 (03:53→18:56)
[2021-11-10 04:51] LABS: HEMATOCRIT. 27.2 % (42.0-52.0); HEMOGLOBIN. 9.5 g/dL (14.0-18.0); MEAN CORPUSCULAR HEMOGLOBIN 28.9 pg (28.0-32.0); MEAN CORPUSCULAR VOLUME 82.6 fL (80.0-94.0); MEAN PLATELET VOLUME 8.2 fl (7.4-10.4); PLATELET 140 x1000/uL (130-400); RED BLOOD CELL COUNT 3.29 mill/uL (4.7-6.1)
[2021-11-10] MEDS: PROPOFOL 10MG/ML 100ML 100 ML IV PRN ×4 (05:33→22:43)
[2021-11-10] MEDS: CALCIUM ACETATE 667MG CAPSULE PO SCH ×3 (05:58→18:56)
[2021-11-10] MEDS: HYDRALAZINE HCL 100MG TABLET PO SCH ×3 (05:58→22:54)
[2021-11-10] MEDS: DEXAMETHASONE 10 MG/ML VIAL IV SCH (09:24)
[2021-11-10] MEDS: PANTOPRAZOLE SODIUM 40 MG/VIAL IV SCH (09:24)
[2021-11-10] MEDS: FOLIC ACID/VITAMIN B COMP W-C TABLET PO SCH (09:25)
[2021-11-10] MEDS: QUETIAPINE FUMARATE 50MG TABLET PO SCH ×2 (09:25→21:27)
[2021-11-10] MEDS: METOPROLOL TARTRATE 50MG TABLET PO SCH ×2 (09:25→21:28)
[2021-11-10] MEDS: NIFEDIPINE XL 30MG TAB PO SCH (09:25)
[2021-11-10] MEDS: FENTANYL CITRATE/PF 2,500 MCG in DEXT 5% WATER 200 ML IV PRN (12:56)
[2021-11-10 15:12] LABS: PLATELET ESTIMATE NORMAL
[2021-11-10] MEDS ORDERED: PROPOFOL 10MG/ML 100ML 100 ML IV PRN (20:30)
[2021-11-10] MEDS: ENOXAPARIN 60MG/0.6ML SYR SUBCUT SCH (21:28)
[2021-11-11] VITALS (63 sets, daily range): BP systolic 114–164; BP diastolic 48–97
[2021-11-11] MEDS: IPRATROPIUM BROMIDE (0.02%) 0.5MG/2.5ML NEB HHN SCH ×6 (00:14→21:27)
[2021-11-11 02:33] LABS: BG BASE EXCESS -3.5 mmol/L (-2.0-2.0); BG CARBOXYHEMOGLOBIN 0.5 % (0.5-1.5); BG FRACTION INSPIRED OXYGEN 70; BG HCO3 ACT 21.1 mmol/L (22.0-26.0); BG METHEMOGLOBIN 0.4 % (0.0-1.5); BG OXYHEMOGLOBIN 95.1 % (94.0-97.0); BG PCO2 36.7 mmHg (35.0-45.0); BG PH 7.377 (7.350-7.450); BG PO2 83.6 mmHg (75.0-100.0); BG SAMPLE SITE RIGHT RADIAL; BG TOTAL HEMOGLOBIN 13.7 g/dL (12.0-18.0)
[2021-11-11] MEDS: MIDAZOLAM HCL 100 MG in SODIUM CHLORIDE 0.9% 100 ML IV PRN ×3 (02:51→17:11)
[2021-11-11] MEDS: FENTANYL CITRATE/PF 2,500 MCG in SODIUM CHLORIDE 0.9% 200 ML IV PRN ×3 (02:53→20:22)
[2021-11-11] MEDS: PROPOFOL 10MG/ML 100ML 100 ML IV PRN ×3 (05:25→21:59)
[2021-11-11 05:49] LABS: HEMATOCRIT. 26.2 % (42.0-52.0); HEMOGLOBIN. 9.6 g/dL (14.0-18.0); MEAN CORPUSCULAR HEMOGLOBIN 30.3 pg (28.0-32.0); MEAN CORPUSCULAR VOLUME 83.2 fL (80.0-94.0); MEAN PLATELET VOLUME 8.4 fl (7.4-10.4); PLATELET 139 x1000/uL (130-400); RED BLOOD CELL COUNT 3.15 mill/uL (4.7-6.1); RED CELL DISTRIBUTION WIDTH 19.3 % (11.6-14.6)
[2021-11-11] MEDS: CALCIUM ACETATE 667MG CAPSULE PO SCH ×3 (06:21→16:27)
[2021-11-11] MEDS: HYDRALAZINE HCL 100MG TABLET PO SCH ×3 (06:22→22:00)
[2021-11-11] MEDS: PANTOPRAZOLE SODIUM 40 MG/VIAL IV SCH (08:19)
[2021-11-11] MEDS: NIFEDIPINE XL 30MG TAB PO SCH (08:19)
[2021-11-11] MEDS: DEXAMETHASONE 10 MG/ML VIAL IV SCH (08:19)
[2021-11-11] MEDS: FOLIC ACID/VITAMIN B COMP W-C TABLET PO SCH (08:19)
[2021-11-11] MEDS: QUETIAPINE FUMARATE 50MG TABLET PO SCH (08:20)
[2021-11-11] MEDS: METOPROLOL TARTRATE 50MG TABLET PO SCH ×2 (08:20→20:20)
[2021-11-11 11:21] LABS: PLATELET ESTIMATE NORMAL
[2021-11-11] MEDS: RISPERIDONE 0.5MG TABLET PO SCH ×2 (13:55→20:19)
[2021-11-11] MEDS: ENOXAPARIN 60MG/0.6ML SYR SUBCUT SCH (21:00)
[2021-11-12] VITALS (59 sets, daily range): BP systolic 97–149; BP diastolic 43–79
[2021-11-12] MEDS: MIDAZOLAM HCL 100 MG in SODIUM CHLORIDE 0.9% 100 ML IV PRN ×3 (00:20→19:18)
[2021-11-12] MEDS: IPRATROPIUM BROMIDE (0.02%) 0.5MG/2.5ML NEB HHN SCH ×6 (00:30→21:13)
[2021-11-12] MEDS: PROPOFOL 10MG/ML 100ML 100 ML IV PRN ×3 (03:46→22:35)
[2021-11-12] MEDS: FENTANYL 2500MCG/250ML PMX 250 ML IV PRN ×3 (04:21→17:33)
[2021-11-12] MEDS: HYDRALAZINE HCL 100MG TABLET PO SCH ×3 (06:00→22:00)
[2021-11-12 06:31] LABS: BASOPHILS % 0.6 % (0.0-2.0); EOSINOPHILS % 2.9 % (0.0-5.0); HEMATOCRIT. 23.9 % (42.0-52.0); HEMOGLOBIN. 8.7 g/dL (14.0-18.0); LYMPHOCYTES % 8.8 % (20.0-50.0); MEAN CORPUSCULAR HEMOGLOBIN 30.3 pg (28.0-32.0); MEAN CORPUSCULAR VOLUME 83.2 fL (80.0-94.0); MEAN PLATELET VOLUME 8.1 fl (7.4-10.4); MONOCYTES % 1.6 % (2.0-8.0); NEUTROPHILS % 86.1 % (40.0-76.0); PLATELET 129 x1000/uL (130-400); RED BLOOD CELL COUNT 2.87 mill/uL (4.7-6.1); RED CELL DISTRIBUTION WIDTH 19.5 % (11.6-14.6)
[2021-11-12] MEDS: CALCIUM ACETATE 667MG CAPSULE PO SCH ×3 (07:07→16:45)
[2021-11-12] MEDS: FENTANYL CITRATE/PF 2,500 MCG in SODIUM CHLORIDE 0.9% 200 ML IV PRN (07:30)
[2021-11-12 08:38] LABS: PHOSPHORUS 2.9 mg/dL (2.5-4.9)
[2021-11-12 08:56] LABS: BG BASE EXCESS -4.9 mmol/L (-2.0-2.0); BG CARBOXYHEMOGLOBIN 0.4 % (0.5-1.5); BG FRACTION INSPIRED OXYGEN 70; BG HCO3 ACT 20.7 mmol/L (22.0-26.0); BG METHEMOGLOBIN 0.3 % (0.0-1.5); BG OXYGEN SATURATION 86.9 % (92.0-98.5); BG OXYHEMOGLOBIN 86.3 % (94.0-97.0); BG PCO2 40.5 mmHg (35.0-45.0); BG PH 7.327 (7.350-7.450); BG PO2 53.8 mmHg (75.0-100.0); BG TOTAL HEMOGLOBIN 8.3 g/dL (12.0-18.0); BG TOTAL RESPIRATORY RATE 34 b/min; BG VENT MODE VENT- PRVC
[2021-11-12] MEDS: METOPROLOL TARTRATE 50MG TABLET PO SCH ×2 (09:11→21:00)
[2021-11-12] MEDS: RISPERIDONE 0.5MG TABLET PO SCH ×2 (09:11→21:17)
[2021-11-12] MEDS: DEXAMETHASONE 10 MG/ML VIAL IV SCH (09:11)
[2021-11-12] MEDS: FOLIC ACID/VITAMIN B COMP W-C TABLET PO SCH (09:11)
[2021-11-12] MEDS: NIFEDIPINE XL 30MG TAB PO SCH (09:11)
[2021-11-12] MEDS: PANTOPRAZOLE SODIUM 40 MG/VIAL IV SCH (09:11)
[2021-11-12] MEDS: NOREPINEPHRINE 32 MG in DEXT 5% WATER 218 ML IV PRN (16:29)
[2021-11-12] MEDS: ENOXAPARIN 60MG/0.6ML SYR SUBCUT SCH (21:17)
[2021-11-13] VITALS (80 sets, daily range): BP systolic 96–134; BP diastolic 44–74
[2021-11-13] MEDS: IPRATROPIUM BROMIDE (0.02%) 0.5MG/2.5ML NEB HHN SCH ×6 (00:57→20:58)
[2021-11-13] MEDS: MIDAZOLAM HCL 100 MG in SODIUM CHLORIDE 0.9% 100 ML IV PRN ×4 (02:11→23:14)
[2021-11-13] MEDS: FENTANYL 2500MCG/250ML PMX 250 ML IV PRN ×4 (02:14→23:13)
[2021-11-13] MEDS: HYDRALAZINE HCL 100MG TABLET PO SCH ×3 (06:00→21:55)
[2021-11-13 06:02] LABS: BASOPHILS % 0.3 % (0.0-2.0); EOSINOPHILS % 2.1 % (0.0-5.0); HEMATOCRIT. 24.2 % (42.0-52.0); HEMOGLOBIN. 8.5 g/dL (14.0-18.0); MEAN CORPUSCULAR HEMOGLOBIN 29.4 pg (28.0-32.0); MEAN CORPUSCULAR VOLUME 83.6 fL (80.0-94.0); MEAN PLATELET VOLUME 8.6 fl (7.4-10.4); MONOCYTES % 2.1 % (2.0-8.0); NEUTROPHILS % 87.5 % (40.0-76.0); PLATELET 134 x1000/uL (130-400); RED BLOOD CELL COUNT 2.89 mill/uL (4.7-6.1)
[2021-11-13] MEDS: PROPOFOL 10MG/ML 100ML 100 ML IV PRN ×3 (06:04→23:12)
[2021-11-13] MEDS: CALCIUM ACETATE 667MG CAPSULE PO SCH ×3 (07:38→16:15)
[2021-11-13] MEDS ORDERED: PROPOFOL 10MG/ML 100ML 100 ML IV PRN ×2 (07:45→10:30)
[2021-11-13] MEDS: NIFEDIPINE XL 30MG TAB PO SCH (09:00)
[2021-11-13] MEDS: DEXAMETHASONE 10 MG/ML VIAL IV SCH (09:15)
[2021-11-13] MEDS: FOLIC ACID/VITAMIN B COMP W-C TABLET PO SCH (09:15)
[2021-11-13] MEDS: RISPERIDONE 0.5MG TABLET PO SCH ×2 (09:15→21:54)
[2021-11-13] MEDS: PANTOPRAZOLE SODIUM 40 MG/VIAL IV SCH (09:15)
[2021-11-13] MEDS: METOPROLOL TARTRATE 50MG TABLET PO SCH ×2 (09:15→21:54)
[2021-11-13 11:21] LABS: BG BASE EXCESS -2.2 mmol/L (-2.0-2.0); BG CARBOXYHEMOGLOBIN 0.3 % (0.5-1.5); BG DEOXYHEMOGLOBIN 9.3 % (0.0-5.0); BG FRACTION INSPIRED OXYGEN 100; BG HCO3 ACT 23.4 mmol/L (22.0-26.0); BG METHEMOGLOBIN 0.3 % (0.0-1.5); BG OXYGEN SATURATION 90.6 % (92.0-98.5); BG OXYHEMOGLOBIN 90.1 % (94.0-97.0); BG PCO2 43.7 mmHg (35.0-45.0); BG PH 7.346 (7.350-7.450); BG PO2 60.5 mmHg (75.0-100.0); BG SAMPLE SITE RIGHT RADIAL; BG TOTAL HEMOGLOBIN 7.2 g/dL (12.0-18.0); BG VENT MODE VENT - PRVC
[2021-11-13] MEDS: ENOXAPARIN 60MG/0.6ML SYR SUBCUT SCH (23:07)
[2021-11-14] VITALS (64 sets, daily range): BP systolic 76–169; BP diastolic 31–97
[2021-11-14] MEDS: IPRATROPIUM BROMIDE (0.02%) 0.5MG/2.5ML NEB HHN SCH ×6 (00:26→20:17)
[2021-11-14 05:53] LABS: HEMATOCRIT. 21.6 % (42.0-52.0); HEMOGLOBIN. 7.5 g/dL (14.0-18.0); MEAN CORPUSCULAR HEMOGLOBIN 29.1 pg (28.0-32.0); MEAN CORPUSCULAR VOLUME 83.4 fL (80.0-94.0); MEAN PLATELET VOLUME 8.6 fl (7.4-10.4); PLATELET 137 x1000/uL (130-400); RED BLOOD CELL COUNT 2.59 mill/uL (4.7-6.1); RED CELL DISTRIBUTION WIDTH 19.9 % (11.6-14.6)
[2021-11-14] MEDS: FENTANYL 2500MCG/250ML PMX 250 ML IV PRN ×3 (07:05→21:41)
[2021-11-14] MEDS: CALCIUM ACETATE 667MG CAPSULE PO SCH ×3 (07:06→17:47)
[2021-11-14] MEDS: HYDRALAZINE HCL 100MG TABLET PO SCH ×3 (07:06→23:13)
[2021-11-14] MEDS: MIDAZOLAM HCL 100 MG in SODIUM CHLORIDE 0.9% 100 ML IV PRN ×3 (07:06→21:40)
[2021-11-14] MEDS: DEXAMETHASONE 10 MG/ML VIAL IV SCH (08:00)
[2021-11-14] MEDS: PROPOFOL 10MG/ML 100ML 100 ML IV PRN ×3 (08:00→23:12)
[2021-11-14] MEDS: PANTOPRAZOLE SODIUM 40 MG/VIAL IV SCH (08:00)
[2021-11-14] MEDS: FOLIC ACID/VITAMIN B COMP W-C TABLET PO SCH (08:00)
[2021-11-14] MEDS: RISPERIDONE 0.5MG TABLET PO SCH ×2 (08:00→23:12)
[2021-11-14] MEDS: METOPROLOL TARTRATE 50MG TABLET PO SCH ×2 (08:00→23:13)
[2021-11-14 08:19] LABS: BG SAMPLE SITE RIGHT RADIAL; BG VENT MODE VENT- PRVC
[2021-11-14 09:06] LABS: BG PCO2 42.1 mmHg (35.0-45.0); BG PH 7.327 (7.350-7.450); BG PO2 59.1 mmHg (75.0-100.0)
[2021-11-14 09:07] LABS: BG BASE EXCESS -4.1 mmol/L (-2.0-2.0); BG HCO3 ACT 21.5 mmol/L (22.0-26.0); BG OXYGEN SATURATION 89.5 % (92.0-98.5); BG TOTAL HEMOGLOBIN 7.4 g/dL (12.0-18.0)
[2021-11-14 09:08] LABS: BG CARBOXYHEMOGLOBIN 0.4 % (0.5-1.5); BG METHEMOGLOBIN 0.3 % (0.0-1.5); BG OXYHEMOGLOBIN 88.9 % (94.0-97.0)
[2021-11-14 09:09] LABS: BG DEOXYHEMOGLOBIN 10.4 % (0.0-5.0)
[2021-11-14 16:16] LABS: PROTHROMBIN TIME 10.3 sec (9.6-11.0)
[2021-11-14 16:41] LABS: PLATELET ESTIMATE NORMAL
[2021-11-15] VITALS (70 sets, daily range): BP systolic 81–136; BP diastolic 41–82
[2021-11-15] MEDS: IPRATROPIUM BROMIDE (0.02%) 0.5MG/2.5ML NEB HHN SCH ×6 (00:39→19:58)
[2021-11-15] MEDS: FENTANYL 2500MCG/250ML PMX 250 ML IV PRN ×3 (04:15→20:59)
[2021-11-15] MEDS: MIDAZOLAM HCL 100 MG in SODIUM CHLORIDE 0.9% 100 ML IV PRN ×3 (04:18→22:11)
[2021-11-15] MEDS: HYDRALAZINE HCL 100MG TABLET PO SCH ×3 (05:08→21:45)
[2021-11-15] MEDS: PROPOFOL 10MG/ML 100ML 100 ML IV PRN ×3 (05:12→20:02)
[2021-11-15 06:00] LABS: HEMATOCRIT. 23.2 % (42.0-52.0); HEMOGLOBIN. 8.2 g/dL (14.0-18.0); MEAN CORPUSCULAR HEMOGLOBIN 29.5 pg (28.0-32.0); MEAN CORPUSCULAR VOLUME 83.5 fL (80.0-94.0); MEAN PLATELET VOLUME 8.3 fl (7.4-10.4); PLATELET 139 x1000/uL (130-400); RED BLOOD CELL COUNT 2.77 mill/uL (4.7-6.1); RED CELL DISTRIBUTION WIDTH 18.3 % (11.6-14.6)
[2021-11-15 06:11] LABS: CHLORIDE 97 mEq/L (98-107)
[2021-11-15] MEDS: CALCIUM ACETATE 667MG CAPSULE PO SCH ×3 (06:12→17:00)
[2021-11-15] MEDS: METOPROLOL TARTRATE 50MG TABLET PO SCH ×2 (08:17→21:45)
[2021-11-15] MEDS: PANTOPRAZOLE SODIUM 40 MG/VIAL IV SCH (08:47)
[2021-11-15] MEDS: DEXAMETHASONE 10 MG/ML VIAL IV SCH (08:47)
[2021-11-15] MEDS: RISPERIDONE 0.5MG TABLET PO SCH ×2 (08:47→20:39)
[2021-11-15] MEDS: FOLIC ACID/VITAMIN B COMP W-C TABLET PO SCH (08:47)
[2021-11-15 09:07] LABS: BG BASE EXCESS -4.5 mmol/L (-2.0-2.0); BG CARBOXYHEMOGLOBIN 0.5 % (0.5-1.5); BG DEOXYHEMOGLOBIN 13.1 % (0.0-5.0); BG FRACTION INSPIRED OXYGEN 100; BG HCO3 ACT 21.1 mmol/L (22.0-26.0); BG METHEMOGLOBIN 0.3 % (0.0-1.5); BG OXYGEN SATURATION 86.8 % (92.0-98.5); BG OXYHEMOGLOBIN 86.1 % (94.0-97.0); BG PCO2 41.1 mmHg (35.0-45.0); BG PH 7.328 (7.350-7.450); BG SAMPLE SITE LEFT RADIAL; BG TOTAL HEMOGLOBIN 9.1 g/dL (12.0-18.0); BG VENT MODE PRVC
[2021-11-15 10:47] LABS: NUCLEATED RED BLOOD CELLS 1 /100 WBC; PLATELET ESTIMATE NORMAL
[2021-11-15] MEDS: NOREPINEPHRINE 32 MG in DEXT 5% WATER 218 ML IV PRN (13:05)
[2021-11-16] VITALS (117 sets, daily range): BP systolic 56–169; BP diastolic 35–99
[2021-11-16] MEDS: IPRATROPIUM BROMIDE (0.02%) 0.5MG/2.5ML NEB HHN SCH ×6 (00:34→20:30)
[2021-11-16 05:24] LABS: HEMATOCRIT. 24.7 % (42.0-52.0); HEMOGLOBIN. 8.6 g/dL (14.0-18.0); MEAN CORPUSCULAR HEMOGLOBIN 29.6 pg (28.0-32.0); MEAN CORPUSCULAR VOLUME 84.7 fL (80.0-94.0); MEAN PLATELET VOLUME 8.8 fl (7.4-10.4); PLATELET 155 x1000/uL (130-400); RED BLOOD CELL COUNT 2.92 mill/uL (4.7-6.1); RED CELL DISTRIBUTION WIDTH 18.6 % (11.6-14.6)
[2021-11-16] MEDS: PROPOFOL 10MG/ML 100ML 100 ML IV PRN (05:59)
[2021-11-16] MEDS: HYDRALAZINE HCL 100MG TABLET PO SCH ×3 (06:00→20:35)
[2021-11-16] MEDS: FENTANYL 2500MCG/250ML PMX 250 ML IV PRN ×2 (06:01→14:18)
[2021-11-16] MEDS: MIDAZOLAM HCL 100 MG in SODIUM CHLORIDE 0.9% 100 ML IV PRN ×2 (06:03→15:39)
[2021-11-16] MEDS: CALCIUM ACETATE 667MG CAPSULE PO SCH ×3 (07:00→17:00)
[2021-11-16 08:07] LABS: BG BASE EXCESS -4.5 mmol/L (-2.0-2.0); BG CARBOXYHEMOGLOBIN 0.5 % (0.5-1.5); BG DEOXYHEMOGLOBIN 6.5 % (0.0-5.0); BG HCO3 ACT 20.5 mmol/L (22.0-26.0); BG METHEMOGLOBIN 0.2 % (0.0-1.5); BG OXYGEN SATURATION 93.5 % (92.0-98.5); BG OXYHEMOGLOBIN 92.8 % (94.0-97.0); BG PCO2 36.9 mmHg (35.0-45.0); BG PH 7.362 (7.350-7.450); BG PO2 70.1 mmHg (75.0-100.0); BG SAMPLE SITE RIGHT RADIAL; BG VENT MODE VENT- PRVC
[2021-11-16 08:17] LABS: NUCLEATED RED BLOOD CELLS 1 /100 WBC; PLATELET ESTIMATE NORMAL
[2021-11-16] MEDS: RISPERIDONE 0.5MG TABLET PO SCH ×2 (09:00→20:35)
[2021-11-16] MEDS: METOPROLOL TARTRATE 50MG TABLET PO SCH ×2 (09:00→20:35)
[2021-11-16] MEDS: FOLIC ACID/VITAMIN B COMP W-C TABLET PO SCH (09:00)
[2021-11-16] MEDS: LACTOBACILLUS GG CAPSULE PO SCH (09:00)
[2021-11-16] MEDS: DEXAMETHASONE 10 MG/ML VIAL IV SCH (09:27)
[2021-11-16] MEDS: PANTOPRAZOLE SODIUM 40 MG/VIAL IV SCH (09:27)
[2021-11-16] MEDS ORDERED: PROPOFOL 10MG/ML 100ML 100 ML IV PRN (11:45)
[2021-11-16 18:23] LABS: BG BASE EXCESS -13.2 mmol/L (-2.0-2.0); BG CARBOXYHEMOGLOBIN 0.3 % (0.5-1.5); BG DEOXYHEMOGLOBIN 20.7 % (0.0-5.0); BG HCO3 ACT 15.6 mmol/L (22.0-26.0); BG METHEMOGLOBIN 0.2 % (0.0-1.5); BG OXYGEN SATURATION 79.2 % (92.0-98.5); BG OXYHEMOGLOBIN 78.8 % (94.0-97.0); BG PCO2 49.5 mmHg (35.0-45.0); BG PH 7.116 (7.350-7.450); BG PO2 55.4 mmHg (75.0-100.0); BG SAMPLE SITE RIGHT RADIAL; BG TOTAL HEMOGLOBIN 9.5 g/dL (12.0-18.0); BG VENT MODE VENT- PRVC
[2021-11-16] MEDS ORDERED: SODIUM BICARBONATE 8.4% 1 MEQ/ML 50ML SYR IV NR ×2 (18:45→21:15)
[2021-11-16] MEDS ORDERED: DEXTROSE 50% WATER 50ML SYRINGE IV PRN (20:00)
[2021-11-16 20:37] LABS: BG BASE EXCESS -12.6 mmol/L (-2.0-2.0); BG CARBOXYHEMOGLOBIN 0.1 % (0.5-1.5); BG DEOXYHEMOGLOBIN 45.9 % (0.0-5.0); BG FRACTION INSPIRED OXYGEN 100; BG HCO3 ACT 17.3 mmol/L (22.0-26.0); BG METHEMOGLOBIN 0.2 % (0.0-1.5); BG OXYHEMOGLOBIN 53.8 % (94.0-97.0); BG PCO2 60.8 mmHg (35.0-45.0); BG PH 7.072 (7.350-7.450); BG PO2 38.7 mmHg (75.0-100.0); BG SAMPLE SITE RIGHT FEMORAL; BG TOTAL HEMOGLOBIN 9.7 g/dL (12.0-18.0); BG VENT MODE VENT - PRVC
[2021-11-16] MEDS: PHENYLEPHRINE 100 MG in DEXT 5% WATER 240 ML IV PRN (21:00)
[2021-11-17] VITALS (98 sets, daily range): BP systolic 71–175; BP diastolic 43–114
[2021-11-17] MEDS: IPRATROPIUM BROMIDE (0.02%) 0.5MG/2.5ML NEB HHN SCH ×5 (00:30→20:30)
[2021-11-17 03:07] LABS: BG BASE EXCESS -3.8 mmol/L (-2.0-2.0); BG CARBOXYHEMOGLOBIN 0.3 % (0.5-1.5); BG DEOXYHEMOGLOBIN 4.5 % (0.0-5.0); BG FRACTION INSPIRED OXYGEN 100; BG METHEMOGLOBIN 0.1 % (0.0-1.5); BG OXYGEN SATURATION 95.5 % (92.0-98.5); BG OXYHEMOGLOBIN 95.1 % (94.0-97.0); BG PCO2 37.1 mmHg (35.0-45.0); BG PO2 81.1 mmHg (75.0-100.0); BG SAMPLE SITE LEFT RADIAL; BG TOTAL HEMOGLOBIN 11.3 g/dL (12.0-18.0); BG TOTAL RESPIRATORY RATE 37 b/min; BG VENT MODE VENT - PRVC
[2021-11-17] MEDS ORDERED: FENTANYL 2500MCG/250ML PMX 250 ML IV PRN (05:30)
[2021-11-17] MEDS ORDERED: FENTANYL CITRATE/PF 2,500 MCG in SODIUM CHLORIDE 0.9% 200 ML IV PRN (05:30)
[2021-11-17 05:50] LABS: HEMATOCRIT. 26.1 % (42.0-52.0); HEMOGLOBIN. 8.7 g/dL (14.0-18.0); MEAN CORPUSCULAR HEMOGLOBIN 28.3 pg (28.0-32.0); MEAN CORPUSCULAR VOLUME 84.7 fL (80.0-94.0); MEAN PLATELET VOLUME 8.8 fl (7.4-10.4); PLATELET 188 x1000/uL (130-400); RED BLOOD CELL COUNT 3.09 mill/uL (4.7-6.1); RED CELL DISTRIBUTION WIDTH 18.9 % (11.6-14.6)
[2021-11-17] MEDS: HYDRALAZINE HCL 100MG TABLET PO SCH ×3 (06:00→22:13)
[2021-11-17] MEDS: CALCIUM ACETATE 667MG CAPSULE PO SCH ×3 (07:42→17:06)
[2021-11-17 08:15] LABS: NUCLEATED RED BLOOD CELLS 5 /100 WBC; PLATELET ESTIMATE NORMAL
[2021-11-17] MEDS: METOPROLOL TARTRATE 50MG TABLET PO SCH ×2 (08:44→20:42)
[2021-11-17] MEDS: LACTOBACILLUS GG CAPSULE PO SCH (08:53)
[2021-11-17] MEDS: FOLIC ACID/VITAMIN B COMP W-C TABLET PO SCH (08:54)
[2021-11-17] MEDS: RISPERIDONE 0.5MG TABLET PO SCH ×2 (08:54→20:43)
[2021-11-17 08:57] LABS: BG BASE EXCESS -5.7 mmol/L (-2.0-2.0); BG CARBOXYHEMOGLOBIN 0.3 % (0.5-1.5); BG DEOXYHEMOGLOBIN 0.9 % (0.0-5.0); BG HCO3 ACT 19.5 mmol/L (22.0-26.0); BG METHEMOGLOBIN 0.3 % (0.0-1.5); BG OXYGEN SATURATION 99.1 % (92.0-98.5); BG OXYHEMOGLOBIN 98.5 % (94.0-97.0); BG PCO2 37.1 mmHg (35.0-45.0); BG PH 7.339 (7.350-7.450); BG PO2 185.1 mmHg (75.0-100.0); BG SAMPLE SITE LEFT RADIAL; BG TOTAL HEMOGLOBIN 8.8 g/dL (12.0-18.0); BG VENT MODE VENT- PRVC
[2021-11-17] MEDS: DEXAMETHASONE 10 MG/ML VIAL IV SCH (09:08)
[2021-11-17] MEDS: MIDAZOLAM HCL 100 MG in SODIUM CHLORIDE 0.9% 100 ML IV PRN ×2 (09:08→16:03)
[2021-11-17] MEDS: PANTOPRAZOLE SODIUM 40 MG/VIAL IV SCH (10:26)
[2021-11-17] MEDS ORDERED: PROPOFOL 10MG/ML 100ML 100 ML IV PRN (17:00)
[2021-11-17] MEDS: CEFEPIME 1,000 MG in DEXTROSE 5% WATER 50 ML IV SCH (17:06)
[2021-11-17] MEDS: FENTANYL 2500MCG/250ML PMX 250 ML IV PRN (17:38)
[2021-11-17] MEDS ORDERED: VANCOMYCIN 1GM PMX (XELLIA) 200 ML IV NR (18:00)
[2021-11-17] MEDS: ACETAMINOPHEN 325MG TABLET PO PRN (20:43)
[2021-11-18] VITALS (95 sets, daily range): BP systolic 107–193; BP diastolic 58–146
[2021-11-18] MEDS: IPRATROPIUM BROMIDE (0.02%) 0.5MG/2.5ML NEB HHN SCH ×5 (00:41→15:13)
[2021-11-18] MEDS: MIDAZOLAM HCL 100 MG in SODIUM CHLORIDE 0.9% 100 ML IV PRN (02:42)
[2021-11-18] MEDS: HYDRALAZINE HCL 100MG TABLET PO SCH ×3 (06:00→21:19)
[2021-11-18] MEDS: CALCIUM ACETATE 667MG CAPSULE PO SCH ×3 (06:51→16:40)
[2021-11-18 08:05] LABS: HEMATOCRIT. 24.7 % (42.0-52.0); HEMOGLOBIN. 8.3 g/dL (14.0-18.0); MEAN CORPUSCULAR VOLUME 86.2 fL (80.0-94.0); MEAN PLATELET VOLUME 9.2 fl (7.4-10.4); PLATELET 166 x1000/uL (130-400); RED BLOOD CELL COUNT 2.87 mill/uL (4.7-6.1); RED CELL DISTRIBUTION WIDTH 19.2 % (11.6-14.6)
[2021-11-18] MEDS: PANTOPRAZOLE SODIUM 40 MG/VIAL IV SCH (08:53)
[2021-11-18] MEDS: DEXAMETHASONE 10 MG/ML VIAL IV SCH (08:53)
[2021-11-18] MEDS: METOPROLOL TARTRATE 50MG TABLET PO SCH ×2 (09:00→21:19)
[2021-11-18] MEDS: FOLIC ACID/VITAMIN B COMP W-C TABLET PO SCH (09:00)
[2021-11-18] MEDS: LACTOBACILLUS GG CAPSULE PO SCH (09:00)
[2021-11-18] MEDS ORDERED: CEFEPIME HCL 1000MG/VIAL INJ IM SCH (09:00)
[2021-11-18 09:24] LABS: BG BASE EXCESS -4.3 mmol/L (-2.0-2.0); BG CARBOXYHEMOGLOBIN 0.3 % (0.5-1.5); BG DEOXYHEMOGLOBIN 0.8 % (0.0-5.0); BG FRACTION INSPIRED OXYGEN 100; BG HCO3 ACT 20.3 mmol/L (22.0-26.0); BG METHEMOGLOBIN 0.2 % (0.0-1.5); BG OXYGEN SATURATION 99.2 % (92.0-98.5); BG OXYHEMOGLOBIN 98.7 % (94.0-97.0); BG PCO2 34.8 mmHg (35.0-45.0); BG PH 7.383 (7.350-7.450); BG PO2 259.9 mmHg (75.0-100.0); BG SAMPLE SITE LEFT RADIAL; BG TOTAL HEMOGLOBIN 8.9 g/dL (12.0-18.0); BG VENT MODE PRVC
[2021-11-18 11:19] LABS: NUCLEATED RED BLOOD CELLS 5 /100 WBC; PLATELET ESTIMATE NORMAL
[2021-11-18] MEDS: CEFEPIME 1,000 MG in DEXTROSE 5% WATER 50 ML IV SCH (16:40)
[2021-11-18] MEDS: PROPOFOL 10MG/ML 100ML 100 ML IV PRN (16:43)
[2021-11-18] MEDS ORDERED: ATROPINE SULFATE 1MG/10ML SYR ONE (20:04)
[2021-11-19] VITALS (90 sets, daily range): BP systolic 92–170; BP diastolic 40–95
[2021-11-19] MEDS: FENTANYL CITRATE 2,500 MCG in SODIUM CHLORIDE 0.9% 200 ML IV PRN ×2 (02:10→17:53)
[2021-11-19 06:01] LABS: HEMATOCRIT. 29.9 % (42.0-52.0); MEAN CORPUSCULAR HEMOGLOBIN 28.8 pg (28.0-32.0); MEAN CORPUSCULAR VOLUME 85.9 fL (80.0-94.0); MEAN PLATELET VOLUME 8.8 fl (7.4-10.4); PLATELET 229 x1000/uL (130-400); RED BLOOD CELL COUNT 3.48 mill/uL (4.7-6.1); RED CELL DISTRIBUTION WIDTH 19.8 % (11.6-14.6)
[2021-11-19] MEDS: HYDRALAZINE HCL 100MG TABLET PO SCH ×3 (06:20→21:12)
[2021-11-19] MEDS: CALCIUM ACETATE 667MG CAPSULE PO SCH ×3 (06:20→17:00)
[2021-11-19] MEDS ORDERED: LIDOCAINE HCL/EPINEPHRINE 1%-EPI 1:100,000 30 ML VIAL INFIL ONE (06:35)
[2021-11-19] MEDS: PROPOFOL 10MG/ML 100ML 100 ML IV PRN (06:41)
[2021-11-19 07:50] LABS: BG BASE EXCESS -4.8 mmol/L (-2.0-2.0); BG CARBOXYHEMOGLOBIN 0.3 % (0.5-1.5); BG DEOXYHEMOGLOBIN 1.2 % (0.0-5.0); BG HCO3 ACT 19.4 mmol/L (22.0-26.0); BG METHEMOGLOBIN 0.5 % (0.0-1.5); BG OXYGEN SATURATION 98.8 % (92.0-98.5); BG PH 7.388 (7.350-7.450); BG PO2 178.5 mmHg (75.0-100.0); BG SAMPLE SITE LEFT RADIAL; BG TOTAL HEMOGLOBIN 10.1 g/dL (12.0-18.0); BG VENT MODE VENT- PRVC
[2021-11-19] MEDS: PANTOPRAZOLE SODIUM 40 MG/VIAL IV SCH (08:33)
[2021-11-19] MEDS: DEXAMETHASONE 10 MG/ML VIAL IV SCH (08:33)
[2021-11-19] MEDS: FOLIC ACID/VITAMIN B COMP W-C TABLET PO SCH (09:00)
[2021-11-19] MEDS: LACTOBACILLUS GG CAPSULE PO SCH (09:00)
[2021-11-19] MEDS: METOPROLOL TARTRATE 50MG TABLET PO SCH ×2 (09:00→21:13)
[2021-11-19] MEDS ORDERED: ROCURONIUM BROMIDE 10MG/ML VIAL 5ML IV ONE (12:47)
[2021-11-19] MEDS ORDERED: MIDAZOLAM HCL 2 MG/2 ML VIAL ONE (12:48)
[2021-11-19] MEDS ORDERED: FENTANYL CITRATE/PF 50MCG/ML 2ML VIAL ONE (13:23)
[2021-11-19] MEDS: IPRATROPIUM/ALBUTEROL 0.5-3(2.5)MG/3ML NEB HHN SCH ×2 (13:53→19:44)
[2021-11-19 16:59] LABS: NUCLEATED RED BLOOD CELLS 1 /100 WBC; PLATELET ESTIMATE NORMAL
[2021-11-19] MEDS: CEFEPIME 1,000 MG in DEXTROSE 5% WATER 50 ML IV SCH (18:28)
[2021-11-19] MEDS: MIDAZOLAM HCL 100 MG in SODIUM CHLORIDE 0.9% 100 ML IV PRN (23:01)
[2021-11-20] VITALS (96 sets, daily range): BP systolic 76–150; BP diastolic 34–100
[2021-11-20] MEDS: IPRATROPIUM/ALBUTEROL 0.5-3(2.5)MG/3ML NEB HHN SCH ×4 (02:02→20:22)
[2021-11-20] MEDS ORDERED: ATROPINE SULFATE 1MG/10ML SYR IV ONE (02:15)
[2021-11-20] MEDS: MEROPENEM 1,000 MG in SODIUM CHLORIDE 0.9% 100 ML IV SCH ×2 (03:50→21:00)
[2021-11-20] MEDS: FENTANYL CITRATE 2,500 MCG in SODIUM CHLORIDE 0.9% 200 ML IV PRN ×3 (03:52→16:32)
[2021-11-20 05:23] LABS: HEMATOCRIT. 25.6 % (42.0-52.0); HEMOGLOBIN. 8.7 g/dL (14.0-18.0); MEAN CORPUSCULAR HEMOGLOBIN 29.1 pg (28.0-32.0); MEAN PLATELET VOLUME 8.5 fl (7.4-10.4); PLATELET 188 x1000/uL (130-400); RED BLOOD CELL COUNT 3.01 mill/uL (4.7-6.1); RED CELL DISTRIBUTION WIDTH 19.8 % (11.6-14.6)
[2021-11-20 05:43] LABS: PHOSPHORUS 6.4 mg/dL (2.5-4.9)
[2021-11-20] MEDS: CALCIUM ACETATE 667MG CAPSULE PO SCH ×2 (06:35→11:48)
[2021-11-20] MEDS: HYDRALAZINE HCL 100MG TABLET PO SCH ×3 (06:35→20:33)
[2021-11-20] MEDS: FOLIC ACID/VITAMIN B COMP W-C TABLET PO SCH (08:27)
[2021-11-20] MEDS: PANTOPRAZOLE SODIUM 40 MG/VIAL IV SCH (08:27)
[2021-11-20] MEDS: METOPROLOL TARTRATE 50MG TABLET PO SCH (08:27)
[2021-11-20] MEDS: LACTOBACILLUS GG CAPSULE PO SCH (08:28)
[2021-11-20] MEDS: MIDAZOLAM HCL 100 MG in SODIUM CHLORIDE 0.9% 100 ML IV PRN ×2 (08:45→16:33)
[2021-11-20] MEDS: PROPOFOL 10MG/ML 100ML 100 ML IV PRN (10:38)
[2021-11-20 10:42] LABS: NUCLEATED RED BLOOD CELLS 1 /100 WBC; PLATELET ESTIMATE NORMAL
[2021-11-20 10:51] LABS: BG BASE EXCESS -1.9 mmol/L (-2.0-2.0); BG CARBOXYHEMOGLOBIN 0.2 % (0.5-1.5); BG DEOXYHEMOGLOBIN 12.5 % (0.0-5.0); BG FRACTION INSPIRED OXYGEN 75; BG HCO3 ACT 23.1 mmol/L (22.0-26.0); BG METHEMOGLOBIN 0.4 % (0.0-1.5); BG OXYGEN SATURATION 87.4 % (92.0-98.5); BG OXYHEMOGLOBIN 86.9 % (94.0-97.0); BG PCO2 40.2 mmHg (35.0-45.0); BG PH 7.377 (7.350-7.450); BG PO2 57.6 mmHg (75.0-100.0); BG SAMPLE SITE LEFT BRACHIAL; BG TOTAL HEMOGLOBIN 9.4 g/dL (12.0-18.0); BG TOTAL RESPIRATORY RATE 31 b/min; BG VENT MODE VENT- PRVC
[2021-11-20 12:06] LABS: INR 1.3; PARTIAL THROMBOPLASTIN TIME 27.9 sec (23.4-31.0)
[2021-11-20] MEDS ORDERED: VANCOMYCIN 750MG PREMIX 150 ML IV NR (18:00)
[2021-11-20] MEDS: PHENYLEPHRINE 100 MG in DEXT 5% WATER 240 ML IV PRN (23:18)
[2021-11-21] VITALS (108 sets, daily range): BP systolic 60–145; BP diastolic 31–103
[2021-11-21] MEDS: FENTANYL CITRATE 2,500 MCG in SODIUM CHLORIDE 0.9% 200 ML IV PRN ×4 (00:02→22:43)
[2021-11-21] MEDS: MIDAZOLAM HCL 100 MG in SODIUM CHLORIDE 0.9% 100 ML IV PRN ×2 (00:42→07:40)
[2021-11-21] MEDS: IPRATROPIUM/ALBUTEROL 0.5-3(2.5)MG/3ML NEB HHN SCH ×4 (02:10→20:41)
[2021-11-21] MEDS: HYDRALAZINE HCL 100MG TABLET PO SCH ×3 (06:00→20:41)
[2021-11-21 06:30] LABS: HEMATOCRIT. 22.3 % (42.0-52.0); HEMOGLOBIN. 7.5 g/dL (14.0-18.0); MEAN CORPUSCULAR HEMOGLOBIN 29.2 pg (28.0-32.0); MEAN CORPUSCULAR VOLUME 86.7 fL (80.0-94.0); MEAN PLATELET VOLUME 8.7 fl (7.4-10.4); PLATELET 133 x1000/uL (130-400); RED BLOOD CELL COUNT 2.58 mill/uL (4.7-6.1); RED CELL DISTRIBUTION WIDTH 19.6 % (11.6-14.6)
[2021-11-21] MEDS: MIDODRINE HCL 5MG TABLET PO SCH ×3 (08:51→17:21)
[2021-11-21] MEDS: PANTOPRAZOLE SODIUM 40 MG/VIAL IV SCH (08:51)
[2021-11-21] MEDS: LACTOBACILLUS GG CAPSULE PO SCH (08:51)
[2021-11-21 09:06] LABS: PLATELET ESTIMATE NORMAL
[2021-11-21] MEDS: NOREPINEPHRINE 32 MG in DEXT 5% WATER 218 ML IV PRN (12:32)
[2021-11-21 14:37] LABS: TOTAL IRON BINDING CAPACITY 194 ug/dL (250-450)
[2021-11-21 14:42] LABS: FOLIC ACID (FOLATE) SERUM > 20.00 ng/mL (>5.38)
[2021-11-21 14:52] LABS: VITAMIN B12 SERUM > 2000.0 pg/mL (211-911)
[2021-11-21] MEDS: VASOPRESSIN 20 UNIT in SODIUM CHLORIDE 0.9% 99 ML IV PRN ×2 (14:54→21:08)
[2021-11-21] MEDS: PROPOFOL 10MG/ML 100ML 100 ML IV PRN (16:18)
[2021-11-21] MEDS: PHENYLEPHRINE 100 MG in DEXT 5% WATER 240 ML IV PRN (17:22)
[2021-11-21 17:40] LABS: FERRITIN 3010 ng/mL (22-322)
[2021-11-21] MEDS ORDERED: ACETAMINOPHEN 650MG/20.3ML UDC PO PRN (19:45)
[2021-11-21] MEDS ORDERED: PHENYLEPHRINE 100 MG in DEXT 5% WATER 240 ML IV PRN (20:30)
[2021-11-21] MEDS: MEROPENEM 1,000 MG in SODIUM CHLORIDE 0.9% 100 ML IV SCH (20:41)
[2021-11-22] VITALS (119 sets, daily range): BP systolic 58–191; BP diastolic 24–133
[2021-11-22] MEDS: IPRATROPIUM/ALBUTEROL 0.5-3(2.5)MG/3ML NEB HHN SCH ×4 (01:38→20:38)
[2021-11-22] MEDS: PROPOFOL 10MG/ML 100ML 100 ML IV PRN ×2 (02:00→13:06)
[2021-11-22] MEDS: HYDRALAZINE HCL 100MG TABLET PO SCH ×3 (03:44→21:26)
[2021-11-22] MEDS: PHENYLEPHRINE 100 MG in DEXT 5% WATER 240 ML IV PRN (03:46)
[2021-11-22 05:48] LABS: HEMATOCRIT. 32.3 % (42.0-52.0); HEMOGLOBIN. 10.5 g/dL (14.0-18.0); MEAN CORPUSCULAR HEMOGLOBIN 30.2 pg (28.0-32.0); MEAN CORPUSCULAR VOLUME 92.6 fL (80.0-94.0); MEAN PLATELET VOLUME 9.7 fl (7.4-10.4); PLATELET 170 x1000/uL (130-400); RED BLOOD CELL COUNT 3.48 mill/uL (4.7-6.1); RED CELL DISTRIBUTION WIDTH 20.7 % (11.6-14.6)
[2021-11-22] MEDS: VASOPRESSIN 20 UNIT in SODIUM CHLORIDE 0.9% 99 ML IV PRN (06:00)
[2021-11-22] MEDS: FENTANYL CITRATE 2,500 MCG in SODIUM CHLORIDE 0.9% 200 ML IV PRN ×2 (06:30→14:11)
[2021-11-22] MEDS ORDERED: SODIUM BICARBONATE 8.4% 1 MEQ/ML 50ML SYR IV NR ×2 (08:00→08:15)
[2021-11-22 08:12] LABS: BG BASE EXCESS -17.7 mmol/L (-2.0-2.0); BG CARBOXYHEMOGLOBIN 0.3 % (0.5-1.5); BG DEOXYHEMOGLOBIN 2.2 % (0.0-5.0); BG HCO3 ACT 11.6 mmol/L (22.0-26.0); BG OXYGEN SATURATION 97.8 % (92.0-98.5); BG OXYHEMOGLOBIN 97.5 % (94.0-97.0); BG PCO2 40.7 mmHg (35.0-45.0); BG PH 7.071 (7.350-7.450); BG PO2 141.1 mmHg (75.0-100.0); BG SAMPLE SITE LEFT RADIAL; BG TOTAL HEMOGLOBIN 11.2 g/dL (12.0-18.0); BG VENT MODE VENT- PRVC
[2021-11-22] MEDS: SODIUM POLYSTYRENE SULFONATE 15 G/60 ML BOT PO NR ×2 (08:14→09:00)
[2021-11-22] MEDS: DEXTROSE 50% WATER 50ML SYRINGE IV NR ×2 (08:14→08:59)
[2021-11-22] MEDS: INSULIN REGULAR (HUMULIN R) 300UNITS/3ML VIAL IV NR ×2 (08:15→08:59)
[2021-11-22] MEDS: CALCIUM GLUCONATE 1GM PREMIX 50 ML IV NR ×2 (08:17→08:59)
[2021-11-22] MEDS: PANTOPRAZOLE SODIUM 40 MG/VIAL IV SCH ×2 (08:17→15:48)
[2021-11-22] MEDS: LACTOBACILLUS GG CAPSULE PO SCH ×2 (08:17→09:09)
[2021-11-22] MEDS: MIDODRINE HCL 5MG TABLET PO SCH ×3 (08:17→19:09)
[2021-11-22 11:24] LABS: HEMATOCRIT. 27.5 % (42.0-52.0); HEMOGLOBIN. 9.9 g/dL (14.0-18.0); MEAN CORPUSCULAR HEMOGLOBIN 32.7 pg (28.0-32.0); MEAN CORPUSCULAR VOLUME 91.2 fL (80.0-94.0); MEAN PLATELET VOLUME 9.1 fl (7.4-10.4); PLATELET 167 x1000/uL (130-400); RED BLOOD CELL COUNT 3.02 mill/uL (4.7-6.1)
[2021-11-22 12:08] LABS: NUCLEATED RED BLOOD CELLS 1 /100 WBC; PLATELET ESTIMATE NORMAL
[2021-11-22] MEDS: SODIUM BICARBONATE 150 MEQ in DEXTROSE 5% WATER 1,000 ML IV SCH (12:50)
[2021-11-22] MEDS: HYDROCORTISONE SOD SUCCINATE 100 MG/2 ML VIAL IV SCH ×2 (12:51→21:31)
[2021-11-22 12:58] LABS: HEPATITIS B SURFACE ANTIGEN NEGATIVE
[2021-11-22 12:59] LABS: NUCLEATED RED BLOOD CELLS 3 /100 WBC; PLATELET ESTIMATE NORMAL
[2021-11-22] MEDS ORDERED: PROPOFOL 10MG/ML 100ML 100 ML IV PRN (13:00)
[2021-11-22] MEDS ORDERED: FENTANYL 2500MCG/250ML PMX 250 ML IV PRN (14:00)
[2021-11-22 14:23] LABS: BG BASE EXCESS -1.3 mmol/L (-2.0-2.0); BG CARBOXYHEMOGLOBIN 0.3 % (0.5-1.5); BG DEOXYHEMOGLOBIN 2.4 % (0.0-5.0); BG FRACTION INSPIRED OXYGEN 100; BG HCO3 ACT 22.8 mmol/L (22.0-26.0); BG METHEMOGLOBIN 0.3 % (0.0-1.5); BG OXYGEN SATURATION 97.6 % (92.0-98.5); BG PCO2 35.6 mmHg (35.0-45.0); BG PH 7.425 (7.350-7.450); BG PO2 111.1 mmHg (75.0-100.0); BG SAMPLE SITE RIGHT RADIAL; BG TOTAL HEMOGLOBIN 8.6 g/dL (12.0-18.0); BG VENT MODE PRVC
[2021-11-22] MEDS: PHYTONADIONE 10MG/ML AMP SUBCUT SCH (15:48)
[2021-11-22 16:30] LABS: INR 1.9; PROTHROMBIN TIME 19.3 sec (9.6-11.0)
[2021-11-22] MEDS ORDERED: PANTOPRAZOLE SODIUM 40 MG/VIAL IV SCH (17:00)
[2021-11-22 21:25] LABS: HEMATOCRIT 28.4 % (42.0-52.0); HEMOGLOBIN 9.6 g/dL (14.0-18.0)
[2021-11-22] MEDS: MEROPENEM 1,000 MG in SODIUM CHLORIDE 0.9% 100 ML IV SCH (21:27)
[2021-11-23] VITALS (98 sets, daily range): BP systolic 76–154; BP diastolic 39–123
[2021-11-23 01:19] LABS: HEMOGLOBIN 9.2 g/dL (14.0-18.0)
[2021-11-23] MEDS: IPRATROPIUM/ALBUTEROL 0.5-3(2.5)MG/3ML NEB HHN SCH ×4 (01:30→20:13)
[2021-11-23] MEDS: COLISTIMETHATE SODIUM 150MG/VIAL INH SCH ×2 (01:30→11:27)
[2021-11-23] MEDS: HYDRALAZINE HCL 100MG TABLET PO SCH ×3 (05:39→21:27)
[2021-11-23] MEDS: SODIUM BICARBONATE 150 MEQ in DEXTROSE 5% WATER 1,000 ML IV SCH (05:42)
[2021-11-23] MEDS: HYDROCORTISONE SOD SUCCINATE 100 MG/2 ML VIAL IV SCH ×3 (05:42→21:27)
[2021-11-23] MEDS: PHENYLEPHRINE 100 MG in DEXT 5% WATER 240 ML IV PRN ×2 (05:43→16:23)
[2021-11-23] MEDS: PHYTONADIONE 10MG/ML AMP SUBCUT SCH (08:12)
[2021-11-23] MEDS: PANTOPRAZOLE SODIUM 40 MG/VIAL IV SCH ×2 (08:12→16:22)
[2021-11-23] MEDS: MIDODRINE HCL 5MG TABLET PO SCH ×3 (08:12→16:23)
[2021-11-23] MEDS: LACTOBACILLUS GG CAPSULE PO SCH (08:12)
[2021-11-23 10:31] LABS: BG BASE EXCESS -13.6 mmol/L (-2.0-2.0); BG CARBOXYHEMOGLOBIN 0.2 % (0.5-1.5); BG DEOXYHEMOGLOBIN 2.8 % (0.0-5.0); BG FRACTION INSPIRED OXYGEN 100; BG HCO3 ACT 13.9 mmol/L (22.0-26.0); BG METHEMOGLOBIN 0.4 % (0.0-1.5); BG OXYGEN SATURATION 97.2 % (92.0-98.5); BG OXYHEMOGLOBIN 96.6 % (94.0-97.0); BG PCO2 38.7 mmHg (35.0-45.0); BG PH 7.173 (7.350-7.450); BG PO2 116.8 mmHg (75.0-100.0); BG SAMPLE SITE LEFT RADIAL; BG TOTAL HEMOGLOBIN 9.4 g/dL (12.0-18.0); BG VENT MODE VENT - PRVC
[2021-11-23] MEDS ORDERED: SODIUM BICARBONATE 8.4% 1 MEQ/ML 50ML SYR IV SCH (11:00)
[2021-11-23] MEDS: FENTANYL CITRATE 2,500 MCG in SODIUM CHLORIDE 0.9% 200 ML IV PRN (12:35)
[2021-11-23 13:11] LABS: HEMOGLOBIN. 8.8 g/dL (14.0-18.0); MEAN CORPUSCULAR HEMOGLOBIN 29.9 pg (28.0-32.0); MEAN PLATELET VOLUME 10.3 fl (7.4-10.4); PLATELET 161 x1000/uL (130-400); RED BLOOD CELL COUNT 2.93 mill/uL (4.7-6.1); RED CELL DISTRIBUTION WIDTH 21.6 % (11.6-14.6)
[2021-11-23 17:15] LABS: NUCLEATED RED BLOOD CELLS 1 /100 WBC
[2021-11-23 17:16] LABS: PLATELET ESTIMATE NORMAL
[2021-11-23] MEDS ORDERED: VANCOMYCIN 750MG PREMIX 150 ML IV NR (18:00)
[2021-11-23] MEDS: MEROPENEM 1,000 MG in SODIUM CHLORIDE 0.9% 100 ML IV SCH (21:28)
[2021-11-24] VITALS (92 sets, daily range): BP systolic 94–160; BP diastolic 28–105
[2021-11-24] MEDS: IPRATROPIUM/ALBUTEROL 0.5-3(2.5)MG/3ML NEB HHN SCH ×4 (00:47→19:58)
[2021-11-24] MEDS: SODIUM BICARBONATE 150 MEQ in DEXTROSE 5% WATER 1,000 ML IV SCH ×2 (01:35→18:09)
[2021-11-24 01:49] LABS: HEMATOCRIT 26.9 % (42.0-52.0)
[2021-11-24 05:27] LABS: HEMOGLOBIN. 8.1 g/dL (14.0-18.0); MEAN CORPUSCULAR HEMOGLOBIN 31.9 pg (28.0-32.0); MEAN PLATELET VOLUME 9.9 fl (7.4-10.4); PLATELET 144 x1000/uL (130-400); RED BLOOD CELL COUNT 2.55 mill/uL (4.7-6.1); RED CELL DISTRIBUTION WIDTH 21.4 % (11.6-14.6)
[2021-11-24] MEDS: HYDRALAZINE HCL 100MG TABLET PO SCH ×3 (05:52→21:51)
[2021-11-24] MEDS: HYDROCORTISONE SOD SUCCINATE 100 MG/2 ML VIAL IV SCH ×3 (06:01→21:55)
[2021-11-24] MEDS: FENTANYL CITRATE 2,500 MCG in SODIUM CHLORIDE 0.9% 200 ML IV PRN (07:19)
[2021-11-24] MEDS: COLISTIMETHATE SODIUM 150MG/VIAL INH SCH ×2 (07:44→20:48)
[2021-11-24] MEDS: PHYTONADIONE 10MG/ML AMP SUBCUT SCH (09:47)
[2021-11-24] MEDS: LACTOBACILLUS GG CAPSULE PO SCH (09:48)
[2021-11-24] MEDS: PANTOPRAZOLE SODIUM 40 MG/VIAL IV SCH ×2 (09:48→16:11)
[2021-11-24] MEDS: MIDODRINE HCL 5MG TABLET PO SCH ×3 (09:48→16:11)
[2021-11-24 09:59] LABS: BG BASE EXCESS -2.1 mmol/L (-2.0-2.0); BG CARBOXYHEMOGLOBIN 0.1 % (0.5-1.5); BG DEOXYHEMOGLOBIN 3.3 % (0.0-5.0); BG FRACTION INSPIRED OXYGEN 100; BG HCO3 ACT 22.2 mmol/L (22.0-26.0); BG METHEMOGLOBIN 0.3 % (0.0-1.5); BG OXYGEN SATURATION 96.7 % (92.0-98.5); BG OXYHEMOGLOBIN 96.3 % (94.0-97.0); BG PCO2 35.6 mmHg (35.0-45.0); BG PH 7.413 (7.350-7.450); BG PO2 100.2 mmHg (75.0-100.0); BG SAMPLE SITE LEFT RADIAL; BG TOTAL HEMOGLOBIN 8.4 g/dL (12.0-18.0); BG VENT MODE VENT - PRVC
[2021-11-24 10:14] LABS: PLATELET ESTIMATE NORMAL
[2021-11-24] MEDS: FENTANYL 2500MCG/250ML PMX 250 ML IV PRN (18:09)
[2021-11-24] MEDS: MEROPENEM 1,000 MG in SODIUM CHLORIDE 0.9% 100 ML IV SCH (21:55)
[2021-11-24 22:39] LABS: HEMATOCRIT 24.9 % (42.0-52.0)
[2021-11-25] VITALS (70 sets, daily range): BP systolic 85–168; BP diastolic 31–112
[2021-11-25] MEDS: IPRATROPIUM/ALBUTEROL 0.5-3(2.5)MG/3ML NEB HHN SCH ×4 (02:36→20:48)
[2021-11-25 05:17] LABS: HEMATOCRIT. 24.8 % (42.0-52.0); HEMOGLOBIN. 8.1 g/dL (14.0-18.0); MEAN CORPUSCULAR HEMOGLOBIN 29.2 pg (28.0-32.0); MEAN CORPUSCULAR VOLUME 89.8 fL (80.0-94.0); PLATELET 131 x1000/uL (130-400); RED BLOOD CELL COUNT 2.76 mill/uL (4.7-6.1); RED CELL DISTRIBUTION WIDTH 21.7 % (11.6-14.6)
[2021-11-25] MEDS: FENTANYL 2500MCG/250ML PMX 250 ML IV PRN ×2 (06:00→21:07)
[2021-11-25] MEDS: HYDROCORTISONE SOD SUCCINATE 100 MG/2 ML VIAL IV SCH ×3 (06:03→22:06)
[2021-11-25] MEDS: HYDRALAZINE HCL 100MG TABLET PO SCH ×3 (06:04→22:07)
[2021-11-25] MEDS: COLISTIMETHATE SODIUM 150MG/VIAL INH SCH ×2 (07:41→20:48)
[2021-11-25] MEDS: LACTOBACILLUS GG CAPSULE PO SCH (08:38)
[2021-11-25] MEDS: PANTOPRAZOLE SODIUM 40 MG/VIAL IV SCH ×2 (08:38→17:53)
[2021-11-25 08:45] LABS: NUCLEATED RED BLOOD CELLS 6 /100 WBC; PLATELET ESTIMATE NORMAL
[2021-11-25 08:46] LABS: BG BASE EXCESS 3.3 mmol/L (-2.0-2.0); BG CARBOXYHEMOGLOBIN 0.2 % (0.5-1.5); BG DEOXYHEMOGLOBIN 16.1 % (0.0-5.0); BG FRACTION INSPIRED OXYGEN 100; BG HCO3 ACT 29.3 mmol/L (22.0-26.0); BG METHEMOGLOBIN 0.1 % (0.0-1.5); BG OXYGEN SATURATION 83.9 % (92.0-98.5); BG OXYHEMOGLOBIN 83.6 % (94.0-97.0); BG PCO2 52.1 mmHg (35.0-45.0); BG PH 7.368 (7.350-7.450); BG PO2 54.9 mmHg (75.0-100.0); BG SAMPLE SITE LEFT BRACHIAL; BG TOTAL HEMOGLOBIN 9.6 g/dL (12.0-18.0); BG TOTAL RESPIRATORY RATE 42 b/min; BG VENT MODE VENT- PRVC
[2021-11-25] MEDS: MIDODRINE HCL 5MG TABLET PO SCH ×3 (09:00→17:00)
[2021-11-25] MEDS ORDERED: MORPHINE SULFATE 4 MG/ML CPJ (NOT FOR IM USE) IV PRN (10:00)
[2021-11-25] MEDS ORDERED: NALOXONE HCL 0.4MG/ML VIAL IV PRN (10:00)
[2021-11-25] MEDS ORDERED: HEPARIN SODIUM 1,000 UNIT/1ML VIAL IV NR (19:15)
[2021-11-25] MEDS: MEROPENEM 1,000 MG in SODIUM CHLORIDE 0.9% 100 ML IV SCH (22:45)
[2021-11-26] VITALS (77 sets, daily range): BP systolic 53–173; BP diastolic 33–123
[2021-11-26] MEDS: IPRATROPIUM/ALBUTEROL 0.5-3(2.5)MG/3ML NEB HHN SCH ×3 (01:08→14:44)
[2021-11-26] MEDS: MORPHINE SULFATE 2 MG/ML CPJ (NOT FOR IM USE) IV PRN ×2 (02:14→13:14)
[2021-11-26] MEDS: HYDRALAZINE HCL 100MG TABLET PO SCH ×2 (05:15→15:21)
[2021-11-26] MEDS: HYDROCORTISONE SOD SUCCINATE 100 MG/2 ML VIAL IV SCH ×2 (05:15→15:21)
[2021-11-26 05:21] LABS: HEMATOCRIT. 28.7 % (42.0-52.0); HEMOGLOBIN. 9.2 g/dL (14.0-18.0); MEAN CORPUSCULAR HEMOGLOBIN 29.3 pg (28.0-32.0); MEAN CORPUSCULAR VOLUME 91.2 fL (80.0-94.0); MEAN PLATELET VOLUME 10.3 fl (7.4-10.4); PLATELET 130 x1000/uL (130-400); RED BLOOD CELL COUNT 3.14 mill/uL (4.7-6.1); RED CELL DISTRIBUTION WIDTH 21.5 % (11.6-14.6)
[2021-11-26 07:54] LABS: BG BASE EXCESS 0.8 mmol/L (-2.0-2.0); BG CARBOXYHEMOGLOBIN 0.5 % (0.5-1.5); BG DEOXYHEMOGLOBIN 12.7 % (0.0-5.0); BG HCO3 ACT 26.6 mmol/L (22.0-26.0); BG METHEMOGLOBIN 0.3 % (0.0-1.5); BG OXYGEN SATURATION 87.2 % (92.0-98.5); BG OXYHEMOGLOBIN 86.5 % (94.0-97.0); BG PCO2 47.7 mmHg (35.0-45.0); BG PH 7.364 (7.350-7.450); BG PO2 57.9 mmHg (75.0-100.0); BG SAMPLE SITE LEFT RADIAL; BG TOTAL HEMOGLOBIN 10.4 g/dL (12.0-18.0); BG VENT MODE VENT- PRVC
[2021-11-26] MEDS: COLISTIMETHATE SODIUM 150MG/VIAL INH SCH (08:33)
[2021-11-26] MEDS: PANTOPRAZOLE SODIUM 40 MG/VIAL IV SCH ×2 (08:59→17:42)
[2021-11-26] MEDS: MIDODRINE HCL 5MG TABLET PO SCH ×3 (09:00→16:16)
[2021-11-26] MEDS: LACTOBACILLUS GG CAPSULE PO SCH (09:00)
[2021-11-26 09:02] LABS: NUCLEATED RED BLOOD CELLS 10 /100 WBC; PLATELET ESTIMATE NORMAL
[2021-11-26] MEDS: LORAZEPAM 2MG/ML CPJ IV PRN ×2 (10:18→18:03)
[2021-11-26] MEDS ORDERED: LACTULOSE 20G/30ML UDC PO NR (11:45)
[2021-11-26] MEDS ORDERED: NA PHOS,M-B/NA PHOS,DI-BA ENEMA 118ML PR NR (11:45)
[2021-11-26] MEDS: METOCLOPRAMIDE HCL 10MG/2ML VIAL IV SCH ×2 (12:10→17:42)
[2021-11-26] MEDS ORDERED: ACETYLCYSTEINE 100MG/ML 10% VIAL 4ML INH SCH (14:00)
[2021-11-26] MEDS: FENTANYL 2500MCG/250ML PMX 250 ML IV PRN (14:00)
[2021-11-26] MEDS ORDERED: FLUMAZENIL 0.1 MG/ML 5ML VIAL IV ONE (19:15)
[2021-11-26] MEDS: PHENYLEPHRINE 100 MG in DEXT 5% WATER 240 ML IV PRN (19:16)
[2021-11-26] MEDS ORDERED: DOPAMINE 400MG/250ML PREMIX 250 ML IV ONE (19:29)
[2021-11-26] MEDS ORDERED: ATROPINE SULFATE 1MG/10ML SYR IV NR (19:30)
[2021-11-26] MEDS ORDERED: NOREPINEPHRINE 32 MG in DEXT 5% WATER 218 ML IV PRN (19:30)
[2021-11-26] MEDS ORDERED: DOPAMINE 400MG/250ML PREMIX 250 ML IV PRN (19:30)
[2021-11-26] MEDS: VASOPRESSIN 20 UNIT in SODIUM CHLORIDE 0.9% 99 ML IV PRN (19:41)
== END 2021-11-26 21:32 | DRG 4 ==
LOC: ER 21:45 → MICUSO 10-21 06:26 → 5WST 10-21 23:07 → MICUSO 10-21 23:13 → 5WST 10-22 04:10 → MICUSO 10-24 07:45
PROVIDERS: ADMIT Internal Medicine; ATTEND Internal Medicine
PROC: 5A1D70Z Performance of Urinary Filtration, Intermittent, Less than 6 Hours Per Day (ICD-10-PCS; 2021-10-21)
PROC: 5A09357 Assistance with Respiratory Ventilation, Less than 24 Consecutive Hours, Continuous Positive Airway Pressure (ICD-10-PCS; 2021-10-21)
PROC: 5A1D70Z Performance of Urinary Filtration, Intermittent, Less than 6 Hours Per Day (ICD-10-PCS; 2021-10-22)
PROC: 5A1955Z Respiratory Ventilation, Greater than 96 Consecutive Hours (ICD-10-PCS; principal; 2021-10-24)
PROC: 02HV33Z Insertion of Infusion Device into Superior Vena Cava, Percutaneous Approach (ICD-10-PCS; 2021-10-24)
PROC: B548ZZA Ultrasonography of Superior Vena Cava, Guidance (ICD-10-PCS; 2021-10-24)
PROC: 5A1D70Z Performance of Urinary Filtration, Intermittent, Less than 6 Hours Per Day (ICD-10-PCS; 2021-10-24)
PROC: 5A09357 Assistance with Respiratory Ventilation, Less than 24 Consecutive Hours, Continuous Positive Airway Pressure (ICD-10-PCS; 2021-10-24)
PROC: 0BH17EZ Insertion of Endotracheal Airway into Trachea, Via Natural or Artificial Opening (ICD-10-PCS; 2021-10-24)
PROC: 5A1D70Z Performance of Urinary Filtration, Intermittent, Less than 6 Hours Per Day (ICD-10-PCS; 2021-10-26)
PROC: 5A1D70Z Performance of Urinary Filtration, Intermittent, Less than 6 Hours Per Day (ICD-10-PCS; 2021-10-28)
PROC: 0BH17EZ Insertion of Endotracheal Airway into Trachea, Via Natural or Artificial Opening (ICD-10-PCS; 2021-10-28)
PROC: 5A1D70Z Performance of Urinary Filtration, Intermittent, Less than 6 Hours Per Day (ICD-10-PCS; 2021-10-30)
PROC: 5A1D70Z Performance of Urinary Filtration, Intermittent, Less than 6 Hours Per Day (ICD-10-PCS; 2021-10-31)
PROC: 30233N1 Transfusion of Nonautologous Red Blood Cells into Peripheral Vein, Percutaneous Approach (ICD-10-PCS; 2021-11-03)
PROC: 5A1D70Z Performance of Urinary Filtration, Intermittent, Less than 6 Hours Per Day (ICD-10-PCS; 2021-11-03)
PROC: 0W9930Z Drainage of Right Pleural Cavity with Drainage Device, Percutaneous Approach (ICD-10-PCS; 2021-11-05)
PROC: 0BH17EZ Insertion of Endotracheal Airway into Trachea, Via Natural or Artificial Opening (ICD-10-PCS; 2021-11-05)
PROC: 5A1D70Z Performance of Urinary Filtration, Intermittent, Less than 6 Hours Per Day (ICD-10-PCS; 2021-11-06)
PROC: 02HV33Z Insertion of Infusion Device into Superior Vena Cava, Percutaneous Approach (ICD-10-PCS; 2021-11-07)
PROC: B548ZZA Ultrasonography of Superior Vena Cava, Guidance (ICD-10-PCS; 2021-11-07)
PROC: 5A1D70Z Performance of Urinary Filtration, Intermittent, Less than 6 Hours Per Day (ICD-10-PCS; 2021-11-07)
PROC: 5A1D70Z Performance of Urinary Filtration, Intermittent, Less than 6 Hours Per Day (ICD-10-PCS; 2021-11-10)
PROC: 5A1D70Z Performance of Urinary Filtration, Intermittent, Less than 6 Hours Per Day (ICD-10-PCS; 2021-11-12)
PROC: 5A1D70Z Performance of Urinary Filtration, Intermittent, Less than 6 Hours Per Day (ICD-10-PCS; 2021-11-14)
PROC: 5A1D70Z Performance of Urinary Filtration, Intermittent, Less than 6 Hours Per Day (ICD-10-PCS; 2021-11-15)
PROC: 5A1D70Z Performance of Urinary Filtration, Intermittent, Less than 6 Hours Per Day (ICD-10-PCS; 2021-11-16)
PROC: 0B110F4 Bypass Trachea to Cutaneous with Tracheostomy Device, Open Approach (ICD-10-PCS; 2021-11-19)
PROC: 5A1D70Z Performance of Urinary Filtration, Intermittent, Less than 6 Hours Per Day (ICD-10-PCS; 2021-11-19)
PROC: 4A10X4Z Monitoring of Central Nervous Electrical Activity, External Approach (ICD-10-PCS; 2021-11-21)
PROC: 5A1D80Z Performance of Urinary Filtration, Prolonged Intermittent, 6-18 hours Per Day (ICD-10-PCS; 2021-11-22)
PROC: 5A1D70Z Performance of Urinary Filtration, Intermittent, Less than 6 Hours Per Day (ICD-10-PCS; 2021-11-23)
PROC: 5A1D70Z Performance of Urinary Filtration, Intermittent, Less than 6 Hours Per Day (ICD-10-PCS; 2021-11-25)
DX: A41.89 Other specified sepsis (principal); E43 Unspecified severe protein-calorie malnutrition; N18.6 End stage renal disease; J12.82 Pneumonia due to coronavirus disease 2019; J15.6 Pneumonia due to other Gram-negative bacteria; U07.1 COVID-19; J80 Acute respiratory distress syndrome; N17.9 Acute kidney failure, unspecified; E87.0 Hyperosmolality and hypernatremia; J93.9 Pneumothorax, unspecified; I82.621 Acute embolism and thrombosis of deep veins of right upper extremity; Z99.11 Dependence on respirator [ventilator] status; D68.9 Coagulation defect, unspecified; E87.1 Hypo-osmolality and hyponatremia; E87.2 Acidosis; G93.40 Encephalopathy, unspecified; I42.9 Cardiomyopathy, unspecified; I82.611 Acute embolism and thrombosis of superficial veins of right upper extremity; K92.2 Gastrointestinal hemorrhage, unspecified; J81.1 Chronic pulmonary edema; I12.0 Hypertensive chronic kidney disease with stage 5 chronic kidney disease or end stage renal disease; R65.20 Severe sepsis without septic shock; E87.70 Fluid overload, unspecified; E87.5 Hyperkalemia; E83.51 Hypocalcemia; I51.7 Cardiomegaly; I46.9 Cardiac arrest, cause unspecified; R04.0 Epistaxis; D63.8 Anemia in other chronic diseases classified elsewhere; R74.01 Elevation of levels of liver transaminase levels; E83.39 Other disorders of phosphorus metabolism; R13.12 Dysphagia, oropharyngeal phase; Z53.29 Procedure and treatment not carried out because of patient's decision for other reasons; Z66 Do not resuscitate; E80.6 Other disorders of bilirubin metabolism; Z99.2 Dependence on renal dialysis; Z91.19 Patient's noncompliance with other medical treatment and regimen; Z68.24 Body mass index [BMI] 24.0-24.9, adult
CPT/HCPCS: 31500; 36415; 36600; 70551; 71045; 71275; 74018; 76700; 76937; 80048; 80053; 80076; 80202; 81003; 82040; 82140; 82248; 82270; 82330; 82375; 82607; 82728; 82746; 82805; 82962; 83540; 83550; 83735; 83880; 83930; 83970; 84100; 84132; 84145; 84478; 84484; 85014; 85018; 85025; 85044; 85049; 85379; 85384; 86140; 86705; 86709; 86803; 86850; 86900; 86920; 87070; 87077; 87186; 87340; 87426; 93005; 93923; 93970; 93971; 94002; 94003; 94640; 94660; 95816; 99285; A6261; C1725; C9113; J0461; J0610; J0692; J0770; J0885; J1100; J1265; J1630; J1644; J1650; J1720; J1815; J1940; J2060; J2185; J2250; J2270; J2310; J2370; J2405; J2543; J2704; J2765; J2930; J3010; J3370; J3430; J3490; J7040; J7050; J7060; J7070; J7608; P9016; Q9967; U0003; U0005; A4315; A5200